=== PATIENT | female | born 1955 | race Caucasian/White ===

== ENCOUNTER 2017-12-24 16:54 | Emergency (ER) | payer MEDICARE, BC ==
[2017-12-24 17:25] VITALS: BP 115/78
--- NOTE | 2017-12-26 22:55 | UC ---
Nikole Hassan Gabriel, scribed for Joy Dozier MD on 12/24/17 at 1820 . Complaint Female HPI - HPI Summary HPI Summary: This patient is a 62 year old F presenting to [facility] with a chief complaint of a possible UTI that began yesterday. The patient rates the pain 2/10 in severity. Patient reports cloudy urine, foul smelling urine, dysuria, and bladder pressure. Patient denies visible hematuria, n/v/d, and back pain. Pt states her bladder doesnt fully empty due to MS. - History Of Current Complaint Chief Complaint: UCGU Stated Complaint: UTI Hx Obtained From: Patient Onset/Duration: Still Present Timing: Constant Severity Initially: Mild Severity Currently: Mild Pain Intensity: 2 Pain Scale Used: 0-10 Numeric Associated Signs And Symptoms: Negative: Back Pain, Nausea, Vomiting(# Of Episodes =) - Allergies/Home Medications Allergies/Adverse Reactions: Allergies Allergy/AdvReac Type Severity Reaction Status Date / Time ciprofloxacin Allergy Severe Hives Verified 12/24/17 17:25 Home Medications: Home Medications ALPRAZolam TAB* [Xanax TAB*] 1 mg PO DAILY 12/24/17 [History Confirmed 12/24/17] Aspirin 81 mg CHEW TAB* 12/24/17 [History Confirmed 12/24/17] Baclofen TAB* [Lioresal TAB*] 10 mg PO DAILY 12/24/17 [History Confirmed ] Cholecalciferol CAP/TAB(NF) [Vitamin D3 CAP/TAB (NF)] 12/24/17 [History] Cq 10 12/24/17 [History] L.acidoph,Paracasei, B.lactis [Probiotic] 12/24/17 [History Confirmed 12/24/17] Omeprazole CAP* [Prilosec CAP* 20 MG] 20 mg PO DAILY 12/24/17 [History Confirmed 12/24/17] Venlafaxine CAP (NF) [Effexor CAP (NF)] 225 mg PO DAILY 12/24/17 [History Confirmed 12/24/17] PMH/Surg Hx/FS Hx/Imm Hx Previously Healthy: No - see below. hx uti's as well. GI/ History: Gastroesophageal Reflux, Other Other GI/ History: UTI's Neurological History: Other Other Neurological History: MS - Surgical History Surgical History: Yes Surgery Procedure, Year, and Place: Removed 3 lymph nodes from neck in 1989 - Family History Known Family History: Negative: Hypertension, Renal Disease, Respiratory Disease, Seizure Disorder - Social History Alcohol Use: None Substance Use Type: None Smoking Status (MU): Never Smoked Tobacco Review of Systems Constitutional: Fatigue Skin: Negative Eyes: Negative ENT: Negative Respiratory: Negative Cardiovascular: Negative Genitourinary: Dysuria, Other - foul smelling urine, pressure over bladder, and cloudy urine Musculoskeletal: Negative - back pain All Other Systems Reviewed And Are Negative: Yes Physical Exam Triage Information Reviewed: Yes Appearance: Well-Appearing, Well-Nourished Vital Signs: Initial Vital Signs Temp 97.7 F 12/24/17 17:16 Pulse 98 12/24/17 17:16 Resp 20 12/24/17 17:16 BP 115/78 12/24/17 17:16 Pulse Ox 97 12/24/17 17:16 Vital Signs Reviewed: Yes Eye Exam: Normal ENT Exam: Normal Neck exam: Normal - grossly no c/o Respiratory Exam: Normal - no tachypnea, no dyspnea Cardiovascular Exam: Normal - hr regular, non-diaphoretic Abdominal Exam: Normal - no cvat abd nontender, although some discomfort lower abd (pelvis) Musculoskeletal Exam: Normal - no new c/o's reported. Moves x 4 ext's Neurological Exam: Other - grossly NAD. + hx ms. Detailed neurologic exam not performed. Psychological Exam: Normal - conversing easily and appropriately Skin Exam: Normal - no visible or reported rash Complaint Female Dx - Course Course Of Treatment: Reviewed urine dip. Suspicious UTI. Recommend f/u PCP or urology. Reviewed coa / tx plan. Questions as posed answered to the best of my ability. - Differential Dx/Diagnosis Provider Diagnoses: UTI Discharge - Sign-Out/Discharge Documenting (check all that apply): Discharge/Admit/Transfer - Discharge Plan Condition: Stable Disposition: HOME Prescriptions: Amoxicillin/Clavulanate TAB* [Augmentin TAB 875*] 875 mg PO BID #14 tab Phenazopyridine 200 mg (NF) [Pyridium 200 MG tab *] 200 mg PO TID #12 tab Patient Education Materials: Urinary Tract Infection in Women (DC), Hematuria ( ED) Referrals: Celia Moran NP [Primary Care Provider] - Additional Instructions: Follow up with Jamilah Moran NP, per routine. Follow up with Dr. Cota as scheduled in December. Seek medical attention for worse or new problems in the meantime. Urine culture has been sent to the lab. - Billing Disposition and Condition Condition: STABLE Disposition: HOME The documentation as recorded by the Nikole sorensen Gabriel accurately reflects the service I personally performed and the decisions made by me, Joy Dozier MD.
== END 2017-12-24 18:35 | disposition home or self-care (01) ==
LOC: UCEAST 16:54
DX: N39.0 Urinary tract infection, site not specified (principal); B96.89 Other specified bacterial agents as the cause of diseases classified elsewhere; Z87.440 Personal history of urinary (tract) infections; R53.83 Other fatigue; K21.9 Gastro-esophageal reflux disease without esophagitis; G35 Multiple sclerosis; Z88.1 Allergy status to other antibiotic agents
CPT/HCPCS: 81003; 87077; 87086; 87186; 99212; G0463

== ENCOUNTER 2018-03-22 20:07 | Inpatient (IN) | payer MEDICARE, BC ==
[2018-03-22] MEDS ORDERED: Acetaminophen TAB* 325 MG ONE (20:16)
[2018-03-22] MEDS ORDERED: Acetaminophen TAB* 325 MG PO ONE (20:21)
--- OUTSIDE RECORDS SUMMARY | 2018-03-22 21:20 | XMS REPORT ---
:1955 External Reference #:[id number] Author Organization [facility] Address [address] [place] [address] Phone [phone] Care Team Providers Name Role Phone Celia Moran DESIGN ANALYST Primary Care Physician Unavailable Payers Type Date Identification Numbers Payment Provider Subscriber Medicare Primary Policy Number: [id number] Medicare - [facility] Breana Hernadez PayID: [id number] [address] [facility] [place] [address] [place] [address] Policy Number: [id number] [facility] Chad Hernadez PayID: [id number] [address] [address] [place] [address] Problems Date Description Provider Status Onset: Generalized multiple sclerosis Active Onset: Rosacea Active Onset: 03/01/2018 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 once a day Prednisolone 03/10/ Active Suspension 1% 15ml 1 drops B00.52 Joaquin Acetate 2018 right eye Zablocki, Three M.D. times a day. taper as directed Venlafaxine 00// Active Tablets 100mg Unknown HCL 0000 Baclofen // Active Tablets 10mg Unknown 0000 Omeprazole / Active Capsules DR 20mg Unknown 0000 Alprazolam XR 00/ Active Tablets ER 1mg Unknown 0000 24HR Xanax XR 00/ Active Tablets ER 1mg Unknown 0000 24HR Vitamin D / Active Tablet Unknown (Cholecalcifer 0000 ol) Fish Oil / Active Capsules 1200mg 2 tabs po Unknown 0000 daily Coq10 / Active Capsules 300mg 1 tab po Unknown 0000 daily Aspirin Adult 00/ Active Tablets DR 81mg 1 tab po Unknown Low Strength 0000 daiy Multiple / Active Tablets Unknown Vitamins 0000 Probiotic / Active Tablets 1 tab po Unknown 0000 daily Results Description No Information Procedures Date CPT Code Description Status 03/10/2018 82478 Photography Ocular External Completed 03/10/2018 51996 Est Patient Intermediate Exam Completed 03/01/2018 44646 New Patient Comprehensive Exam Completed Plan of Care 03/16/2018 - Joaquin Walter M.D.H17.11 Central corneal opacity, right eyeComments:Smoking can increase the risk of developing or worsening any eye related disease, as well as affect your overall health. If you are a smoker, we strongly recommend that you quit.If you are not a smoker, we strongly recommend that you do not start. CONTINUE TO TAKE THE VALTREX PILL ONCE A DAYDECREASETHE STEROID DROP TO 3X/DAY TO THE RIGHT EYE UNTIL I SEE YOU IN 3 WEEKSFollow up:3 Week Follow Up CORNEA CHECK At your next visit, we are not planning to dilate your eyes. However,if you have any changes in your vision or new symptoms, there are certain situations that require usto dilate your eyes. If Dr. Walter requests any additional testing, that may require extra time. If you have any questions before your next appointment, please call our office at .
--- OUTSIDE RECORDS SUMMARY | 2018-03-22 21:20 | XMS REPORT ---
:1955 External Reference #:[id number] Author Organization [facility] Address [address] [place] [address] Phone [phone] Care Team Providers Name Role Phone Celia Moran TWISTHAND Primary Care Physician Unavailable Payers Type Date Identification Numbers Payment Provider Subscriber Medicare Primary Policy Number: [id number] Medicare - [facility] Breana Hernadez PayID: [id number] [address] [facility] [place] [address] [place] [address] Policy Number: [id number] [facility] Chad Hernadez PayID: [id number] [address] [address] [place] [address] Problems Date Description Provider Status Onset: Generalized multiple sclerosis Active Onset: Rosacea 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 Once a day Prednisolone 03/10/ Active Suspension 1% 15ml 1 drops B00.52 Joaquin Acetate 2018 right eye Zablocki, Six times M.D. a day. taper as directed Venlafaxine 00// Active Tablets 100mg Unknown HCL 0000 Baclofen /00/ Active Tablets 10mg Unknown 0000 Omeprazole / Active Capsules DR 20mg Unknown 0000 Alprazolam XR 00/ Active Tablets ER 1mg Unknown 0000 24HR Xanax XR 00/ Active Tablets ER 1mg Unknown 0000 24HR Vitamin D / Active Tablet Unknown (Cholecalcifer 0000 ol) Fish Oil / Active Capsules 1200mg 2 tabs po Unknown 0000 daily Coq10 // Active Capsules 300mg 1 tab po Unknown 0000 daily Aspirin Adult / Active Tablets DR 81mg 1 tab po Unknown Low Strength 0000 daiy Multiple / Active Tablets Unknown Vitamins 0000 Probiotic / Active Tablets 1 tab po Unknown 0000 daily Results Description No Information Procedures Date CPT Code Description Status 03/01/2018 96664 New Patient Comprehensive Exam Completed Plan of Care 03/10/2018 - Joaquin Walter M.D.B00.52 Herpesviral keratitisNew Medication: Valacyclovir HCL 500 mgPrednisolone Acetate 1 %Comments:Smoking can increase the risk of developing or worsening any eye related disease, as well as affect your overall health. If you are a smoker, we strongly recommend that you quit.If you are not a smoker, we strongly recommend that you do not start. I WILL PRESCRIBE AN ORAL ANTIVIRAL, START ~B_TWO DAYS BEFORE~b_ THE STEROID EYE DROPS. TAKE THE ORAL MEDICATION 1 PILL ONCE A DAY. USE THE STEROID EYE DROPS 6 TIMES A DAY FOR 1 WEEK TO THE RIGHT UNTIL I SEE YOU AGAIN CONTINUE TAKING THE ORAL MEDICATION WHILE USING THE EYE DROPS.Follow up:1 Week Follow Up CORNEA RECHECK At your next visit, we are not planning to dilate your eyes. However, if you have any changes in your vision or new symptoms, there are certain situations that require us to dilate your eyes. If Dr. Walter requests any additional testing, that may require extra time.If you have any questions before your next appointment, please call our office at .
[2018-03-22] MEDS ORDERED: Ibuprofen TAB* 400 MG PO ONE (22:06)
[2018-03-22] MEDS ORDERED: Ibuprofen TAB* 800 MG PO ONE ×2 (22:08→22:10)
[2018-03-22] MEDS ORDERED: NS 0.9% 1000 ML*IV.FLUID IV ONE (22:17)
[2018-03-22] MEDS ORDERED: Piperacillin/Tazobac ADVAN(*) 3.375 GM in NS 0.9% 100 ML* 100 ML IVPB ONE (22:18)
[2018-03-22 22:48] LABS: Hematocrit 39 % (35-47); Hemoglobin 13.7 g/dl (12.0-16.0); Mean Corpuscular HGB Conc 36 g/dl (31-36); Mean Corpuscular Hemoglobin 32 pg (27-31); Mean Corpuscular Volume 91 fL (80-97); Mean Platelet Volume 6.2 um3 (7.4-10.4); Platelet Count 257 10^3/ul (150-450); Red Blood Count 4.26 10^6/ul (4.00-5.40); Red Cell Distribution Width 13 % (10.5-15); White Blood Count 12.4 10^3/ul (3.5-10.8)
--- NOTE | 2018-03-22 22:56 | ED ---
Complex/Multi-Sys Presentation - HPI Summary HPI Summary: This is Chas Todd documenting for Germain Mathew MD. This patient is a 63 year old F presenting to [facility] with a chief complaint of fever. She also reports a GO, lower back pain, diffuse soreness, urinary retention secondary to MS, and difficulty ambulating secondary to MS. She denies vomiting, flank pain/abdominal pain, burning sensation during urination, or diarrhea. The patient rates the pain 7/10 in severity. She has had MS for over 40 years. Patient is able to urinate on her own and does not have a catheter. She sees Dr. Orlando Hughes in Urology. - History Of Current Complaint Chief Complaint: EDFever Time Seen by Provider: 03/22/18 22:06 Hx Obtained From: Patient Onset/Duration: Still Present Timing: Constant Severity Currently: Moderate Severity Initially: Moderate Associated Signs And Symptoms: Positive: Headache, Back Pain - lower back pain, Fever, Other - diffuse soreness, urinary retention secondary to MS, and difficulty ambulating secondary to MS; denies flank pain. Negative: Vomiting, Abdominal Pain - Denies flank pain/abdominal pain, Dysuria - Denies burning during urination - Allergies/Home Medications Allergies/Adverse Reactions: Allergies Allergy/AdvReac Type Severity Reaction Status Date / Time ciprofloxacin Allergy Severe Hives Verified 12/24/17 17:25 Home Medications: Home Medications ALPRAZolam [Alprazolam Xr] 1 mg PO DAILY 03/23/18 [History Confirmed 03/23/18] Calcium Carbonate [Calcium] 500 mg PO DAILY 03/23/18 [History Confirmed 03/23/18 ] Magnesium Oxide [Magnesium] 400 mg PO DAILY 03/23/18 [History Confirmed 03/23/18 ] Multivitamins/Minerals TAB* [Theragran/minerals TAB*] 1 tab PO DAILY 03/23/18 [ History Confirmed 03/23/18] [place]-3 Fatty Acids/Fish Oil [Fish Oil 1,000 mg Capsule] 1 each PO BID 03/23/18 [History Confirmed 03/23/18] ValACYclovir (*) [Valtrex 500 mg (*)] 500 mg PO DAILY 03/23/18 [History Confirmed 03/23/18] prednisoLONE 1% OPHTH.SUSP* [Pred Forte 1%*] 1 drop RIGHT EYE TID 03/23/18 [ History Confirmed 03/23/18] PMH/Surg Hx/FS Hx/Imm Hx Musculoskeletal History: Denies: Hx Osteoporosis - Cancer History Hx Chemotherapy: No Hx Radiation Therapy: No - Surgical History Surgery Procedure, Year, and Place: Removed 3 lymph nodes from neck in 1989 Infectious Disease History: No Infectious Disease History: Denies: Traveled Outside the [place] in Last 30 Days - Family History Known Family History: Negative: Hypertension, Renal Disease, Respiratory Disease, Seizure Disorder - Social History Alcohol Use: None Substance Use Type: Reports: None Smoking Status (MU): Never Smoked Tobacco Review of Systems Positive: Fever Negative: Vomiting, Diarrhea Positive: other - urinary retention secondaryto MS. Negative: burning Positive: Other - difficulty ambulating secondary to MS, lower back pain, and diffuse soreness; denies flank pain Positive: Headache All Other Systems Reviewed And Are Negative: Yes Physical Exam - Summary Physical Exam Summary: VITAL SIGNS: Reviewed. GENERAL: Patient is a well-developed and nourished FEMALE who is lying comfortable in the stretcher. Patient is not in any acute respiratory distress. HEAD AND FACE: No signs of trauma. No ecchymosis, hematomas or skull depressions. No sinus tenderness. EYES: PERRLA, EOMI x 2, No injected conjunctiva, no nystagmus. EARS: Hearing grossly intact. Ear canals and tympanic membranes are within normal limits. MOUTH: Oropharynx within normal limits. NECK: Supple, trachea is midline, no adenopathy, no JVD, no carotid bruit, no c- spine tenderness, neck with full ROM. CHEST: Symmetric, no tenderness at palpation LUNGS: Clear to auscultation bilaterally. No wheezing or crackles. CVS: Mild tachycardia. Regular rhythm, S1 and S2 present, no murmurs or gallops appreciated. ABDOMEN: Soft, non-tender. No signs of distention. No rebound no guarding, and no masses palpated. Bowel sounds are normal. EXTREMITIES: FROM in all major joints, no edema, no cyanosis or clubbing. NEURO: Alert and oriented x 3. No acute neurological deficits. Speech is normal and follows commands. SKIN: Dry and warm Triage Information Reviewed: Yes Vital Signs On Initial Exam: Initial Vitals Temp Pulse Resp BP Pulse Ox 101.9 F 122 22 131/78 99 03/22/18 20:10 03/22/18 20:10 03/22/18 20:10 03/22/18 20:10 03/22/18 20:10 Vital Signs Reviewed: Yes Diagnostics - Vital Signs Vital Signs Temp Pulse Resp BP Pulse Ox 03/22/18 22:12 101.3 F 03/22/18 20:10 101.9 F 122 22 131/78 99 - Laboratory Lab Results: Lab Results 03/22/18 Range/Units 22:36 WBC 12.4 H (3.5-10.8) 10^3/ul RBC 4.26 (4.00-5.40) 10^6/ul Hgb 13.7 (12.0-16.0) g/dl Hct 39 (35-47) % MCV 91 (80-97) fL MCH 32 H (27-31) pg MCHC 36 (31-36) g/dl RDW 13 (10.5-15) % Plt Count 257 (150-450) 10^3/ul MPV 6.2 L (7.4-10.4) um3 Neut % (Auto) Pending Lymph % (Auto) Pending [place] % (Auto) Pending Eos % (Auto) Pending Baso % (Auto) Pending Absolute Neuts (auto) Pending Absolute Lymphs (auto) Pending Absolute Monos (auto) Pending Absolute Eos (auto) Pending Absolute Basos (auto) Pending Absolute Nucleated RBC Pending Nucleated RBC % Pending Result Diagrams: 03/22/18 22:36 03/22/18 22:36 Lab Statement: Any lab studies that have been ordered have been reviewed, and results considered in the medical decision making process. - Radiology Chest X-ray Radiology Interpretation Completed By: ED Physician - No acute processes, pending official reading from the radiologist. - CT CT of Abdomen/Pelvis CT Interpretation Completed By: Radiologist - CT of abdomen reveal findings of chronic bladder outlet obstruction or neurogenic bladder. No addional findings to correlate with patient's symptomatology. The ED Physician has reviewed this report. - EKG 4712 EKG Interpretation: Non-specific ST/T wave changes changes 23:22 Cardiac Rate: NL - 89 BPM EKG Rhythm: Sinus Rhythm EKG Interpretation: EKG reveals non-specific ST/T wave changes. Read by physician at 23:22 Complex Multi-Symp Course/Dx Assessment/Plan: This patient is a 63 yo with hx MS that has been stable over many years. She also has difficulty emptying her bladder, fever, body aches, and chills. Bloodwork showed she has a UTI. She was admitted for a UTI. - Diagnoses Differential Diagnoses/HQI/PQRI: Urinary Tract Infection Provider Diagnoses: UTI (urinary tract infection) - Physician Notifications Discussed Care Of Patient With: Chris Puga Time Discussed With Above Provider: 23:24 Instructed by Provider To: Admit As Inpatient - Spoke on the phone with Dr. Puga, a hospitalist, who will come see the patient and admit her to [facility]. Discharge - Sign-Out/Discharge Documenting (check all that apply): Patient Departure - Discharge Plan Condition: Stable Disposition: ADMITTED TO [facility] [facility]
[2018-03-22 22:57] LABS: INR 0.94 (0.77-1.02)
[2018-03-22 23:11] LABS: ABS Basophils 0 10^3/ul (0-0.2); ABS Eosinophils 0 10^3/ul (0-0.6); ABS Lymphocytes 0.9 10^3/ul (1.0-4.8); ABS Monocytes 1.1 10^3/ul (0-0.8); ABS Neutrophils 10.4 10^3/ul (1.5-7.7); ABS Nucleated RBC 0 10^3/ul; Eosinophil % 0 % (0-6); Lymphocyte % 7.2 % (25-47); Nucleated Red Blood Cells % 0
[2018-03-22 23:12] LABS: EGFR Non-African American 65.3 (>60)
[2018-03-23 00:26] LABS: Urine Appearance Cloudy; Urine Blood 2+ (Negative); Urine Color Amber; Urine Ketones Negative (Negative); Urine Protein Negative (Negative); Urine Red Blood Cell 3+(>10/hpf) (Absent); Urine Specific Gravity 1.006 (1.010-1.030); Urine Urobilinogen Positive (Negative); Urine White Blood Cell 3+(>20/hpf) (Absent)
[2018-03-23] MEDS ORDERED: Ondansetron INJ* 2 MG/ML VIAL IV PRN (00:59)
[2018-03-23] MEDS ORDERED: NS 0.9% 1000 ML* 1,000 ML IV SCH (01:00)
[2018-03-23] MEDS: cefTRIAXone(*) 1 GM in NS 0.9% 50 ML* 50 ML IVPB SCH (03:23)
[2018-03-23] MEDS: Baclofen TAB* 10 MG PO SCH ×5 (03:24→20:50)
[2018-03-23] MEDS: prednisoLONE 1% OPHTH.SUSP* 5 ML OPHTH.SUSP RIGHT EYE SCH ×4 (03:25→20:50)
[2018-03-23] MEDS ORDERED: Morphine VIAL* 4 MG/ML VIAL (1 ml vial) IV ONE (04:34)
[2018-03-23] MEDS: Heparin VIAL(*) 5000 UNITS/ML VIAL (FIVE THOUSAND) SUBCUT SCH ×3 (04:49→20:50)
--- NOTE | 2018-03-23 05:28 | HP ---
CC: Celia Moran NP * HISTORY AND PHYSICAL: DATE OF ADMISSION: 03/23/18 PRIMARY CARE PROVIDER: Celia Moran NP ATTENDING PHYSICIAN WHILE IN THE HOSPITAL: Dr. Chris Puga * (report dictated by Eduardo Flores NP) CHIEF COMPLAINT: 1. Not feeling well. 2. Arthralgias. 3. Myalgia. HISTORY OF PRESENT ILLNESS: Ms. Hernadez is a 63-year-old female patient. She carries a history of MS, rosacea, anxiety, neurogenic bladder, and history of hypertension. She is coming into the ED today stating that over the last couple of days, she just has not been feeling well. She has been having aching , particularly in the lower extremities. She has that kind of aching all over. She has just been feeling weak. She has been having a hard time walking, which is not her baseline. She states typically, she can get around. She states she has just been feeling more weak, more fatigued. So, she decided to come into the ED today. When she arrived, she was noted to be febrile. She is denying any nausea, vomiting. No flank pain. She did admit to having foul- smelling urine, cloudy urine. She did start taking Pyridium because she was having a harder time emptying her bladder. She came into the emergency department, she was evaluated, was found to have showing signs of sepsis from a urinary source and we were asked to evaluate for admission. PAST MEDICAL HISTORY: Significant for: 1. MS. 2. Rosacea. 3. Anxiety. 4. Neurogenic bladder. 5. Hypertension. PAST SURGICAL HISTORY: She has had tonsillectomy. HOME MEDICATIONS: Include: 1. Prednisolone 1 drop right eye t.i.d. 2. Valtrex 500 mg daily. 3. Fish oil 1 capsule p.o. b.i.d. 4. Calcium 500 mg daily. 5. Multivitamin 1 tablet daily. 6. Magnesium oxide 400 mg p.o. daily. 7. Xanax XR 1 mg p.o. daily. 8. Coenzyme Q10 1 tablet p.o. daily. 9. Vitamin D3 2000 units p.o. daily. 10. Aspirin 81 mg daily. 11. Prilosec 20 mg daily. 12. Probiotic 1 capsule p.o. daily. 13. Effexor 225 mg p.o. daily. 14. Baclofen 10 mg p.o. 4 times a day. ALLERGIES TO MEDICATIONS: Include CIPROFLOXACIN. FAMILY HISTORY: Mother had a history of intracranial hemorrhage. Father had a history of heart disease. SOCIAL HISTORY: She does not smoke. She does not drink. Surrogate decision maker is her . REVIEW OF SYSTEMS: There is a documented fever here, but she denied having any fevers at home. She denies having any double vision. She denies having any ear discharge. There is no rhinorrhea. There was no sore throat, no thyroid enlargement. She is denying having any chest pain. There was no orthopnea, there was no nocturnal dyspnea. There was no abdominal pain, no flank tenderness. She denies having any dysuria. There has been no frequency. She denied having any seizure. There was no loss of consciousness. No pruritus. No skin ulcerations. Review of 14 systems completed, all others negative. PHYSICAL EXAMINATION GENERAL: At this time, Ms. Hernadez is a 63-year-old female patient. She is sitting in the ED stretcher. She does not appear to be in any acute distress. VITAL SIGNS: Blood pressure 137/77, pulse 95, respirations were 18, O2 sat 94% , temperature 98.9, her original temperature was 101.9. HEENT: Head is atraumatic, normocephalic. Eyes: EOMs are intact. Sclerae anicteric and not pale. Throat: Oral mucosa appears to be dry. No oropharyngeal erythema. NECK: Supple. LUNGS: Clear to auscultation bilaterally. There were no wheezes, rales, or rhonchi. HEART: Sounds S1, S2. She had a regular rate and rhythm. There were no murmurs, rubs or gallops. ABDOMEN: Soft, flat, nontender. She had no CVA tenderness. EXTREMITIES: Pulses were 2+ throughout. She has about 4/5 strength in the lower extremities. She had 5/5 strength in the upper extremities. She had no peripheral edema. Pulses are 2+. NEUROLOGIC: The patient is awake, she is alert. She is oriented x3. The tongue is midline. She had no gross focal deficits. SKIN: Intact. DIAGNOSTIC STUDIES/LAB DATA: WBC of 12.4, RBC of 4.26, hemoglobin of 13.7, hematocrit of 39, platelet count of 257. INR was 0.94, PTT of 24.8. Sodium was 135, potassium of 3.7, chloride of 101, bicarb 25, BUN 12, creatinine of 0.87, glucose 130, lactic 0.5, calcium 9.5. Total bili is 0.6, AST 19, ALT 19, alk phos 79, troponin 0.02. Albumin was 4.2. She did have an abdomen and pelvis CT obtained today. Impression was findings of chronic bladder outlet obstruction or neurogenic bladder. No additional findings to correlate with patient's symptomatology. She did have an EKG obtained today. Unfortunately, I do not have a previous for comparison, but it does show today a normal sinus rhythm. She had diffuse ST depression, rate of 89, but no ST elevations or T-wave inversions. Old medical records are reviewed. ASSESSMENT AND PLAN: Ms. Hernadez is a 63-year-old female patient coming into the emergency department today with complaints of generalized malaise, aches, not feeling well, and found to have fever, found to be initially tachycardic and she also was noted to be mildly tachypneic with respiratory rate of 22. We were asked to evaluate for admission. She will be admitted under inpatient status for: 1. Sepsis secondary to urinary tract infection. At this point, I will go ahead and she did get 30 mg/kg fluid bolus. She has been pancultured. Urine has been sent previously. She is growing out E. coli. I have placed her on Rocephin and I will continue with fluid hydration, wait for cultures, and continue to monitor. I suspect the source is urinary. 2. EKG changes, probably secondary to some demand ischemia from the sepsis. I am going to go ahead and place her on telemetry, cycle her troponins. We will get a repeat EKG in the morning. 3. Multiple sclerosis. Continue her current medical regimen. 4. Rosacea. Not an active issue currently. 5. Anxiety. Continue meds as prescribed. 6. Neurogenic bladder. I am going to go ahead and put a Andersen in the setting of the urinary tract infection. She will need to follow up with her primary urologist, Dr. Hughes. We can touch base with him tomorrow. She may be at a point where she will need to learn how to self cath, but again I would defer further management to her urologist. 7. Hypertension. Continue meds as prescribed. 8. DVT prophylaxis. She will be placed on heparin subcu. 9. Code status. She is full code. 10. Fluids, electrolytes, and nutrition. She can have a regular diet. TIME SPENT: Time spent on the admission was approximately 60 minutes, greater than half the time was spent [id number] with the patient obtaining my history and physical, other half time was spent going over the plan of care with the patient and implementing the plan of care. I did discuss the plan of care with my attending, Dr. Puga, he is in agreement. EDUARDO FLORES, WORD PROCESSING SPECIALIST [id number]/[facility] #: [id number] JOHANN
--- NOTE | 2018-03-23 07:51 | RAD ---
HISTORY: Fever COMPARISONS: None VIEWS: 1: frontal portable view of the chest at 10:27 PM FINDINGS: LINES AND TUBES: None. CARDIOMEDIASTINAL SILHOUETTE: The cardiomediastinal silhouette is normal for portable technique. PLEURA: The costophrenic angles are sharp. No pleural abnormalities are noted. LUNG PARENCHYMA: The lungs are clear. ABDOMEN: The upper abdomen is clear. There is no subphrenic gas. BONES AND SOFT TISSUES: There is a scoliotic curvature of the spine IMPRESSION: NO ACTIVE CARDIOPULMONARY DISEASE. R0
[2018-03-23 08:58] LABS: ABS Basophils 0 10^3/ul (0-0.2); ABS Eosinophils 0 10^3/ul (0-0.6); ABS Lymphocytes 0.6 10^3/ul (1.0-4.8); ABS Monocytes 1.1 10^3/ul (0-0.8); ABS Neutrophils 10.7 10^3/ul (1.5-7.7); ABS Nucleated RBC 0 10^3/ul; Eosinophil % 0 % (0-6); Hematocrit 36 % (35-47); Hemoglobin 12.6 g/dl (12.0-16.0); Lymphocyte % 4.9 % (25-47); Mean Corpuscular HGB Conc 35 g/dl (31-36); Mean Corpuscular Hemoglobin 32 pg (27-31); Mean Corpuscular Volume 92 fL (80-97); Mean Platelet Volume 6.3 um3 (7.4-10.4); Nucleated Red Blood Cells % 0; Platelet Count 214 10^3/ul (150-450); Red Blood Count 3.91 10^6/ul (4.00-5.40); Red Cell Distribution Width 13 % (10.5-15); White Blood Count 12.5 10^3/ul (3.5-10.8)
--- NOTE | 2018-03-23 08:58 | RAD ---
CLINICAL HISTORY: fever ? source, HX MS COMPARISON: None TECHNIQUE: Multiple contiguous axial CT scans were obtained of the abdomen and pelvis, without intravenous contrast enhancement. Coronal and sagittal multiplanar reformations are submitted for review. Oral contrast was not administered. FINDINGS: The study is limited by the lack of intravenous contrast. This limits evaluation of the solid organs and vasculature. LUNG BASES: The lung bases are clear. LIVER: The liver is normal in shape, size, contour, and attenuation. BILE DUCTS: There is no intrahepatic or extrahepatic biliary dilatation. GALLBLADDER: The gallbladder is normal, without pericholecystic inflammatory change. PANCREAS: The pancreas is normal, without mass or ductal dilatation. SPLEEN: Normal in size and appearance. UPPER GI TRACT: Evaluation of the gastrointestinal tract is limited by incomplete gastric distention. The upper GI tract is unremarkable. SMALL BOWEL AND MESENTERY: The small bowel is normal in contour, course, and caliber. There is no obstruction or dilatation. COLON: The colon is normal in contour, course, caliber. There is no pericolonic inflammatory change. ADRENALS: Normal bilaterally. KIDNEYS: The kidneys are normal in shape, size, contour, and axis. There is no hydronephrosis or nephrolithiasis. BLADDER: The bladder is distended. There is trabeculation of the bladder wall with multiple small bladder diverticula. PELVIC ORGANS: The uterus and adnexa are grossly normal for technique. AORTA: The aorta is normal. IVC: Unremarkable LYMPH NODES: There is no lymphadenopathy by size criteria. ABDOMINAL WALL: There is no evidence for abdominal wall hernia. BONES AND SOFT TISSUES: There is spondylolysis with spondylolisthesis at L5-S1. Degenerative changes are noted along the lower lumbar spine. OTHER: None IMPRESSION: 1. MULTIPLE BLADDER DIVERTICULA SUGGESTIVE OF CHRONIC BLADDER OUTLET OBSTRUCTION VERSUS NEUROGENIC BLADDER. 2. SPONDYLOLYSIS WITH SPONDYLOLISTHESIS AT L5-S1. R2
[2018-03-23 09:21] LABS: EGFR Non-African American 78.8 (>60)
[2018-03-23] MEDS: Multivitamins/Minerals TAB PO SCH (09:26)
[2018-03-23] MEDS: Lactobacillus Acidophilus* 1 TAB PO SCH (09:26)
[2018-03-23] MEDS: ALPRAZolam TAB* 0.5 MG PO SCH (09:26)
[2018-03-23] MEDS: Omeprazole CAP* 20 MG PO SCH (09:26)
[2018-03-23] MEDS: Venlafaxine EXT RELEASE CAP* 75 MG PO SCH (09:27)
[2018-03-23] MEDS: ValACYclovir (*) 500 MG TAB PO SCH (09:27)
[2018-03-23] MEDS: Aspirin 81 mg CHEW TAB* 81 MG TAB.CHEW PO SCH (09:30)
--- NOTE | 2018-03-23 10:26 | PN ---
Subjective Date of Service: 03/23/18 Interval History: Leg pain gone. Patient had been aware of bladder fullness for some time. She has been seeing Dr. Cota who talked to her about self-cath. Objective Active Medications: Acetaminophen (Tylenol Tab*) 650 mg PO Q4H PRN PRN Reason: FEVER/PAIN Alprazolam (Xanax Tab*) 1 mg PO DAILY [facility] Last Admin: 03/23/18 09:26 Dose: 1 mg Aspirin (Aspirin 81 Mg Chew Tab*) 81 mg PO DAILY [facility] Last Admin: 03/23/18 09:30 Dose: 81 mg Baclofen (Lioresal Tab*) 10 mg PO QID [facility] Last Admin: 03/23/18 09:26 Dose: 10 mg Heparin Sodium (Porcine) (Heparin Vial(*)) 5,000 units SUBCUT Q8HR [facility] Last Admin: 03/23/18 04:49 Dose: 5,000 units Ceftriaxone Sodium 1 gm/ (Sodium Chloride) 50 mls @ 200 mls/hr IVPB Q24H [facility] Last Admin: 03/23/18 03:23 Dose: 200 mls/hr Lactobacillus Rhamnosus (Lactobacillus Acidophilus*) 1 tab PO DAILY [facility] Last Admin: 03/23/18 09:26 Dose: 1 tab Multivitamins/Minerals (Theragran/Minerals Tab*) 1 tab PO DAILY [facility] Last Admin: 03/23/18 09:26 Dose: 1 tab Omeprazole (Prilosec Cap*) 20 mg PO DAILY@0730 [facility] Last Admin: 03/23/18 09:26 Dose: 20 mg Ondansetron HCl (Zofran Inj*) 4 mg IV Q6H PRN PRN Reason: NAUSEA Prednisolone Acetate (Pred Forte 1%*) 1 drop RIGHT EYE TID [facility] Last Admin: 03/23/18 09:27 Dose: 1 drop Valacyclovir HCl (Valtrex 500 Mg (*)) 500 mg PO DAILY [facility]; Protocol Last Admin: 03/23/18 09:27 Dose: 500 mg Venlafaxine HCl (Effexor Xr Cap*) 225 mg PO DAILY [facility]; Protocol Last Admin: 03/23/18 09:27 Dose: 225 mg Vital Signs - 8 hr 03/23/18 03/23/18 03/23/18 03:33 03:41 04:49 Temperature 97.3 F 98.2 F Pulse Rate 81 88 Respiratory 18 17 20 Rate Blood Pressure 131/66 119/67 (mmHg) O2 Sat by Pulse 98 99 Oximetry 03/23/18 09:26 Temperature Pulse Rate Respiratory 18 Rate Blood Pressure (mmHg) O2 Sat by Pulse Oximetry Oxygen Devices in Use Now: None Appearance: Alert, partly up in bed. In good spirits. Looks comfortable. Eyes: No Scleral Icterus Respiratory: Symmetrical Chest Expansion and Respiratory Effort, Clear to Auscultation, Clear to Percussion Cardiovascular: NL Sounds; No Murmurs; No JVD, RRR, No Edema, - Skin: No Rash or Ulcers, No Nodules or Sclerosis, - Neurological: Alert and Oriented x 3, NL Sensation Result Diagrams: 03/23/18 08:30 03/23/18 08:30 Additional Lab and Data: Lab Results 03/22/18 Range/Units 22:36 WBC 12.4 H (3.5-10.8) 10^3/ul RBC 4.26 (4.00-5.40) 10^6/ul Hgb 13.7 (12.0-16.0) g/dl Hct 39 (35-47) % MCV 91 (80-97) fL MCH 32 H (27-31) pg MCHC 36 (31-36) g/dl RDW 13 (10.5-15) % Plt Count 257 (150-450) 10^3/ul MPV 6.2 L (7.4-10.4) um3 Neut % (Auto) Pending Lymph % (Auto) Pending Overton % (Auto) Pending Eos % (Auto) Pending Baso % (Auto) Pending Absolute Neuts (auto) Pending Absolute Lymphs (auto) Pending Absolute Monos (auto) Pending Absolute Eos (auto) Pending Absolute Basos (auto) Pending Absolute Nucleated RBC Pending Nucleated RBC % Pending Assess/Plan/Problems-Billing Assessment: - Patient Problems (1) UTI (urinary tract infection) Current Visit: Yes Status: Acute Comment: U Cx pending. Continue ceftrriaxone. Note last C&S showed E. coli coyle-sensitive. Consider discharge on oral cephalosporin 03/[address] Cota for teaching self-cath. (2) Urinary retention Current Visit: Yes Status: Acute Code(s): R33.9 - RETENTION OF URINE, UNSPECIFIED SNOMED Code(s): 619808990 Comment: In ED Andersen drained 1300 ml immediately. See above. (3) Multiple sclerosis Current Visit: Yes Status: Acute Code(s): G35 - MULTIPLE SCLEROSIS SNOMED Code(s): 75421134 Comment: Fup Dr. Jimenez.
[2018-03-23] MEDS: Acetaminophen TAB* 325 MG PO PRN (18:18)
[2018-03-24] MEDS: Acetaminophen TAB* 325 MG PO PRN (01:01)
[2018-03-24] MEDS: cefTRIAXone(*) 1 GM in NS 0.9% 50 ML* 50 ML IVPB SCH (02:07)
[2018-03-24] MEDS: Heparin VIAL(*) 5000 UNITS/ML VIAL (FIVE THOUSAND) SUBCUT SCH ×3 (05:23→20:01)
[2018-03-24 07:23] LABS: ABS Basophils 0 10^3/ul (0-0.2); ABS Eosinophils 0 10^3/ul (0-0.6); ABS Lymphocytes 1.8 10^3/ul (1.0-4.8); ABS Monocytes 0.9 10^3/ul (0-0.8); ABS Neutrophils 6.4 10^3/ul (1.5-7.7); ABS Nucleated RBC 0 10^3/ul; Eosinophil % 0 % (0-6); Hematocrit 37 % (35-47); Hemoglobin 12.9 g/dl (12.0-16.0); Lymphocyte % 19.6 % (25-47); Mean Corpuscular HGB Conc 34 g/dl (31-36); Mean Corpuscular Hemoglobin 32 pg (27-31); Mean Corpuscular Volume 93 fL (80-97); Mean Platelet Volume 6.3 um3 (7.4-10.4); Nucleated Red Blood Cells % 0; Platelet Count 197 10^3/ul (150-450); Red Blood Count 4.03 10^6/ul (4.00-5.40); Red Cell Distribution Width 13 % (10.5-15); White Blood Count 9.2 10^3/ul (3.5-10.8)
[2018-03-24 07:33] LABS: INR 0.98 (0.77-1.02)
[2018-03-24] MEDS: Omeprazole CAP* 20 MG PO SCH (07:34)
[2018-03-24 07:37] LABS: EGFR Non-African American 77.6 (>60)
[2018-03-24] MEDS: Multivitamins/Minerals TAB PO SCH (09:20)
[2018-03-24] MEDS: ValACYclovir (*) 500 MG TAB PO SCH (09:20)
[2018-03-24] MEDS: Aspirin 81 mg CHEW TAB* 81 MG TAB.CHEW PO SCH (09:20)
[2018-03-24] MEDS: ALPRAZolam TAB* 0.5 MG PO SCH (09:20)
[2018-03-24] MEDS: Baclofen TAB* 10 MG PO SCH ×4 (09:21→20:01)
[2018-03-24] MEDS: Lactobacillus Acidophilus* 1 TAB PO SCH (09:21)
[2018-03-24] MEDS: prednisoLONE 1% OPHTH.SUSP* 5 ML OPHTH.SUSP RIGHT EYE SCH ×3 (09:21→20:01)
[2018-03-24] MEDS: Venlafaxine EXT RELEASE CAP* 75 MG PO SCH (09:24)
[2018-03-24] MEDS ORDERED: Calcium CHLORIDE 10% SYRINGE* 1 GM in D5W 100 ML BAG* 100 ML IV ONE (10:30)
--- NOTE | 2018-03-24 16:32 | PN ---
Subjective Date of Service: 03/24/18 Interval History: Pt seen and examined. Meds and labs reviewed ROS: Pt mentions, she still feels weak more than usual. Denied GO/dizziness, F /C, N/V, CP, SOB, increased cough, sputum production, abd pain, diarrhea, constipation, dysuria, myalgias, arthralgias, throat pain, and new skin lesions. The rest of the 14 point ROS are unremarkable. PHYSICAL EXAM: GEN APPEARANCE: Awake, not in acute distress HEENT: NC/AT, PERRLA, moist oral mucosa, (-) throat erythema NECK: Soft, supple, (-) cervical LAD, (-)JVD HEART: S1S2 WNL, RRR, No MRG CHEST: CTA, BL, GAE, No W/R/R ABD: Soft, ND/NT, NABS 4x Q EXT: No C/C/E SKIN: Warm to touch PSYCH: No active psychosis, hallucinations, depression, SI/HI Objective Active Medications: Acetaminophen (Tylenol Tab*) 650 mg PO Q4H PRN PRN Reason: FEVER/PAIN Last Admin: 03/24/18 01:01 Dose: 650 mg Alprazolam (Xanax Tab*) 1 mg PO DAILY [facility] Last Admin: 03/24/18 09:20 Dose: 1 mg Aspirin (Aspirin 81 Mg Chew Tab*) 81 mg PO DAILY [facility] Last Admin: 03/24/18 09:20 Dose: 81 mg Baclofen (Lioresal Tab*) 10 mg PO QID [facility] Last Admin: 03/24/18 16:25 Dose: 10 mg Heparin Sodium (Porcine) (Heparin Vial(*)) 5,000 units SUBCUT Q8HR [facility] Last Admin: 03/24/18 13:02 Dose: 5,000 units Ceftriaxone Sodium 1 gm/ (Sodium Chloride) 50 mls @ 200 mls/hr IVPB Q24H [facility] Last Admin: 03/24/18 02:07 Dose: 200 mls/hr Lactobacillus Rhamnosus (Lactobacillus Acidophilus*) 1 tab PO DAILY [facility] Last Admin: 03/24/18 09:21 Dose: 1 tab Multivitamins/Minerals (Theragran/Minerals Tab*) 1 tab PO DAILY [facility] Last Admin: 03/24/18 09:20 Dose: 1 tab Omeprazole (Prilosec Cap*) 20 mg PO DAILY@0730 [facility] Last Admin: 03/24/18 07:34 Dose: 20 mg Ondansetron HCl (Zofran Inj*) 4 mg IV Q6H PRN PRN Reason: NAUSEA Prednisolone Acetate (Pred Forte 1%*) 1 drop RIGHT EYE TID [facility] Last Admin: 03/24/18 16:25 Dose: 1 drop Valacyclovir HCl (Valtrex 500 Mg (*)) 500 mg PO DAILY [facility]; Protocol Last Admin: 03/24/18 09:20 Dose: 500 mg Venlafaxine HCl (Effexor Xr Cap*) 225 mg PO DAILY [facility]; Protocol Last Admin: 03/24/18 09:24 Dose: 225 mg Vital Signs - 8 hr 03/24/18 03/24/18 03/24/18 08:51 09:20 11:22 Temperature 98.4 F Pulse Rate 86 Respiratory 16 16 18 Rate Blood Pressure 141/79 (mmHg) O2 Sat by Pulse 100 Oximetry 03/24/18 11:32 Temperature 98.6 F Pulse Rate 93 Respiratory 16 Rate Blood Pressure 141/76 (mmHg) O2 Sat by Pulse 100 Oximetry Oxygen Devices in Use Now: None Result Diagrams: 03/24/18 07:09 03/24/18 07:09 Additional Lab and Data: Lab Results 03/22/18 Range/Units 22:36 WBC 12.4 H (3.5-10.8) 10^3/ul RBC 4.26 (4.00-5.40) 10^6/ul Hgb 13.7 (12.0-16.0) g/dl Hct 39 (35-47) % MCV 91 (80-97) fL MCH 32 H (27-31) pg MCHC 36 (31-36) g/dl RDW 13 (10.5-15) % Plt Count 257 (150-450) 10^3/ul MPV 6.2 L (7.4-10.4) um3 Neut % (Auto) Pending Lymph % (Auto) Pending O'Brien % (Auto) Pending Eos % (Auto) Pending Baso % (Auto) Pending Absolute Neuts (auto) Pending Absolute Lymphs (auto) Pending Absolute Monos (auto) Pending Absolute Eos (auto) Pending Absolute Basos (auto) Pending Absolute Nucleated RBC Pending Nucleated RBC % Pending Microbiology and Other Data: Microbiology 03/23/18 00:01 Urine Culture - Preliminary Urine Escherichia Coli 03/22/18 23:15 Aerobic Blood Culture - Preliminary Blood Venous No Growth Day 1 Anaerobic Blood Culture - Preliminary No Growth Day 1 03/22/18 22:36 Aerobic Blood Culture - Preliminary Blood Venous No Growth Day 1 Anaerobic Blood Culture - Preliminary No Growth Day 1 Assess/Plan/Problems-Billing Assessment: - Patient Problems (1) Weakness Current Visit: Yes Status: Acute Code(s): R53.1 - WEAKNESS SNOMED Code(s) : 69725912 Comment: -Appreciate PT input -Rollator, PRN (2) UTI (urinary tract infection) Current Visit: Yes Status: Acute Comment: -Blood cultures (-) x 1D -Urine culture shows E. coli---sensitivity is pending (3) Urinary retention Current Visit: Yes Status: Acute Code(s): R33.9 - RETENTION OF URINE, UNSPECIFIED SNOMED Code(s): 321446317 Comment: In ED Andersen drained 1300 ml immediately. See above. (4) Multiple sclerosis Current Visit: Yes Status: Acute Code(s): G35 - MULTIPLE SCLEROSIS SNOMED Code(s): 04602057 Comment: Diazp Dr. Jimenez. (5) DVT prophylaxis Current Visit: Yes Status: Acute Code(s): ERS8726 - SNOMED Code(s): 367701440 Comment: -Continue Heparin SQ q8H Status and Disposition: -For possible D/C in 1-2 days
[2018-03-24] MEDS ORDERED: Calcium Carbonate CHEW TAB* 500 MG (TUMS) PO ONE (20:38)
[2018-03-25] MEDS: cefTRIAXone(*) 1 GM in NS 0.9% 50 ML* 50 ML IVPB SCH (02:14)
[2018-03-25] MEDS: Heparin VIAL(*) 5000 UNITS/ML VIAL (FIVE THOUSAND) SUBCUT SCH ×2 (05:46→13:14)
[2018-03-25 07:08] LABS: ABS Basophils 0 10^3/ul (0-0.2); ABS Eosinophils 0 10^3/ul (0-0.6); ABS Lymphocytes 1.7 10^3/ul (1.0-4.8); ABS Monocytes 0.7 10^3/ul (0-0.8); ABS Nucleated RBC 0 10^3/ul; Eosinophil % 0 % (0-6); Hematocrit 36 % (35-47); Hemoglobin 12.8 g/dl (12.0-16.0); Mean Corpuscular HGB Conc 36 g/dl (31-36); Mean Corpuscular Hemoglobin 32 pg (27-31); Mean Corpuscular Volume 91 fL (80-97); Mean Platelet Volume 6.4 um3 (7.4-10.4); Nucleated Red Blood Cells % 0.1; Platelet Count 261 10^3/ul (150-450); Red Blood Count 3.97 10^6/ul (4.00-5.40); Red Cell Distribution Width 12 % (10.5-15); White Blood Count 5.4 10^3/ul (3.5-10.8)
[2018-03-25] MEDS: Omeprazole CAP* 20 MG PO SCH (07:36)
[2018-03-25 07:51] VITALS: BP 143/82
[2018-03-25] MEDS: Lactobacillus Acidophilus* 1 TAB PO SCH (08:43)
[2018-03-25] MEDS: Venlafaxine EXT RELEASE CAP* 75 MG PO SCH (08:43)
[2018-03-25] MEDS: Aspirin 81 mg CHEW TAB* 81 MG TAB.CHEW PO SCH (08:43)
[2018-03-25] MEDS: ALPRAZolam TAB* 0.5 MG PO SCH (08:43)
[2018-03-25] MEDS: Baclofen TAB* 10 MG PO SCH ×2 (08:43→13:14)
[2018-03-25] MEDS: ValACYclovir (*) 500 MG TAB PO SCH (08:44)
[2018-03-25] MEDS: Multivitamins/Minerals TAB PO SCH (08:44)
[2018-03-25] MEDS: prednisoLONE 1% OPHTH.SUSP* 5 ML OPHTH.SUSP RIGHT EYE SCH ×2 (08:44→13:14)
--- NOTE | 2018-03-26 05:48 | DS ---
CC: Dr. Chris Puga; Dr. Germain Mathew; Celia Moran NP DISCHARGE SUMMARY: DATE OF ADMISSION: DATE OF DISCHARGE: DISCHARGE DIAGNOSES: As follows: 1. Weakness likely secondary to urinary tract infection. 2. Urinary tract infection with mild sepsis, sepsis resolved. 3. Urinary retention likely secondary to #2. 4. History of multiple sclerosis. DISCHARGE MEDICATIONS: As follows: 1. Alprazolam 1 mg p.o. daily. 2. Aspirin 81 mg p.o. daily. 3. Baclofen 10 mg p.o. q.i.d. 4. Calcium carbonate 500 mg p.o. daily. 5. Cefadroxil 1000 mg p.o. b.i.d. for 8 more days. 6. Cholecalciferol 2000 units p.o. daily. 7. Coenzyme Q10 1 tab p.o. daily. 8. Probiotic 1 tab p.o. daily. 9. Magnesium oxide 400 mg p.o. daily. 10. Multivitamins 1 tab p.o. daily. 11. Jud-3 fatty acid 1 capsule p.o. b.i.d. and 1 capsule is equal to 1000 mg. 12. Omeprazole 20 mg p.o. daily. 13. Prednisolone eye drops 1% ophthalmic solution 1 drop to right eye t.i.d. 14. Valacyclovir 500 mg p.o. daily. 15. Venlafaxine 75 mg p.o. daily. HISTORY OF PRESENT ILLNESS/HOSPITAL COURSE: The patient is a 63-year-old lady with history of anxiety, neurogenic bladder, and MS, who presented with feeling unwell with arthralgias and myalg ias and was subsequently found to have a diagnosis of UTI with mild sepsis on admission. She was ini tially placed on Rocephin while cultures were pending, which was found to be E. coli that is pansensi tive even to first generation cephalosporin. Given her weakness, she was also seen by Brant reed who recommended a rollator p.r.n. both inpatient and as an outpatient with no other further needs. She had been advised to follow up and/or call her PCP within 3 days post discharge, to call [facility] if her PCP cannot see her any sooner and to contact her PCP first and make sure that h e or she agrees that she is appropriate to be seen in the outpatient sooner instead of the ER and to follow up with Dr. Hughes, so that she can discuss the best time to discontinue her Andersen and she has been provided Dr. Hughes's number. She had been advised to call my office regarding any questions, co ncerns, or further clarifications regarding her discharge plans and/or prescription and to take her m edications as prescribed. PHYSICAL EXAMINATION: Shows the following vital signs with blood pressure of 143/82, 14 per minute r espiratory rate, 98.4 degrees Fahrenheit, 82 beats per minute heart rate. General Appearance: The p atient is awake, alert, and oriented x3, not in acute distress. HEENT: Normocephalic, atraumatic. PERRLA. Extraocular muscles intact. Negative for icterus. Moist oral mucosa. Negative throat eryth arlene. Neck is soft, supple with no cervical lymphadenopathy. No JVD. Heart: S1, S2 within normal li mits. Regular rate and rhythm. No murmurs, rubs, and gallops. Chest: Clear to auscultation bilate rally. Good air entry. No wheezes, rales, or rhonchi. Abdomen is soft, nondistended, nontender. N ormoactive bowel sounds x4. Extremities: No cyanosis, clubbing, or edema. Psychiatric: No active psychosis, depression, suicidal, no homicidal ideations. Skin is warm to touch. TIME SPENT: The total time spent evaluating the patient, reviewing pertinent data and appropriate do cumentation is greater than 30 minutes. [id number]/[facility] #: [id number]
== END 2018-03-25 16:30 | disposition home or self-care (01) | DRG 872 ==
LOC: ED 20:07 → MED 03-23 00:55
PROVIDERS: ADMIT Hospitalist; ATTEND Student in an Organized Health Care Education/Training Program
DX: A41.9 Sepsis, unspecified organism (principal); N39.0 Urinary tract infection, site not specified; G35 Multiple sclerosis; L71.9 Rosacea, unspecified; F41.9 Anxiety disorder, unspecified; N31.9 Neuromuscular dysfunction of bladder, unspecified; I10 Essential (primary) hypertension; R53.1 Weakness; B96.20 Unspecified Escherichia coli [E. coli] as the cause of diseases classified elsewhere; R33.9 Retention of urine, unspecified; Z79.82 Long term (current) use of aspirin; Z88.1 Allergy status to other antibiotic agents; Z82.49 Family history of ischemic heart disease and other diseases of the circulatory system; Z82.0 Family history of epilepsy and other diseases of the nervous system; Z79.52 Long term (current) use of systemic steroids
CPT/HCPCS: 36415; 71045; 74176; 80048; 80053; 81003; 81015; 83605; 83735; 84100; 84484; 85025; 85610; 85730; 86140; 87040; 87077; 87086; 87186; 93005; 99284; A9270-GY; G8978-GP-CI; G8979-GP-CH; J0696; J1644; J2270; J2543

== ENCOUNTER 2019-04-10 17:25 | Observation (INO) | payer MEDICARE, BC ==
--- NOTE | 2019-04-10 20:43 | ED ---
Neurological HPI - HPI Summary HPI Summary: This pt is a 64 Y/O F presenting to [facility] with a CC of weakness that has gotten worse since the onset on 04/06/19. She stated that she visited her PCP who recommended a ED visit for further evaluation. She stated that she has had MS for the past 40 years but has not had a flare up since 22 years ago. She states that her R side is weaker and her R leg has been dragging behind her. She states that she has had trouble urinating since she was diagnosed and uses a catheter at the end of the day before she falls asleep. She stated that she does not use a cane or walker while at home. She stated that she sees Dr. Brooks a couple months ago. She stated that her last MRI was a couple of years ago. She stated that her legs are both weak but the R one is more weak than the L. She was walking around 04/06/19 at the grocery store and was unable to walk after going to dinner later that night. She stated that her R leg has had a feeling of pressure. She denies any fever, chills, CP, SOB, abdominal pain, dysuria, and headaches. - History of Current Complaint Chief Complaint: EDWeakness Stated Complaint: WEAKNESS PER PT Time Seen by Provider: 04/10/19 20:35 Hx Obtained From: Patient Onset/Duration: Sudden Onset - 04/06/19, Still Present Timing: Constant Onset Severity: Moderate Current Severity: Moderate Pain Intensity: 0 Pain Scale Used: 0-10 Numeric Aggravating: Exertion Alleviating: Nothing Associated Signs and Symptoms: Positive: Negative - fever, chills, CP, SOB, abdominal pain, dysuria, and headaches, Unsteady Gait, Weakness - bilateral leg weakness, R side is worse than the L. Negative: Headache, Pain, Fever, Chest Pain, Shortness of Breath - Additional Pertinent History Primary Care Physician: [id number] - Allergy/Home Medications Allergies/Adverse Reactions: Allergies Allergy/AdvReac Type Severity Reaction Status Date / Time ciprofloxacin Allergy Severe Hives Verified 12/24/17 17:25 Home Medications: Home Medications Methenamine Hippurate 1 gm PO BID 04/10/19 [History Confirmed 04/11/19] PMH/Surg Hx/FS Hx/Imm Hx Previously Healthy: No Cardiovascular History: Reports: Hx Hypertension Musculoskeletal History: Denies: Hx Osteoporosis Sensory History: Reports: Hx Contacts or Glasses Denies: Hx Hearing Aid Opthamlomology History: Reports: Hx Contacts or Glasses Neurological History: Reports: Other Neuro Impairments/Disorders - MS - Cancer History Hx Chemotherapy: No Hx Radiation Therapy: No - Surgical History Surgery Procedure, Year, and Place: Removed 3 lymph nodes from neck in 1989 Infectious Disease History: No Infectious Disease History: Denies: Traveled Outside the [place] in Last 30 Days - Family History Known Family History: Negative: Hypertension, Renal Disease, Respiratory Disease, Seizure Disorder - Social History Alcohol Use: None Substance Use Type: Reports: None Smoking Status (MU): Never Smoked Tobacco Review of Systems Negative: Fever, Chills Negative: Chest Pain Negative: Shortness Of Breath Negative: Abdominal Pain Negative: dysuria Positive: Weakness - bilateral lower extremity weakness, the R side is worse than the left. . Negative: Headache All Other Systems Reviewed And Are Negative: Yes Physical Exam - Summary Physical Exam Summary: VITAL SIGNS: Reviewed. GENERAL: Patient is a well-developed and nourished female who is lying comfortable in the stretcher. Patient is not in any acute respiratory distress. HEAD AND FACE: No signs of trauma. No ecchymosis, hematomas or skull depressions. No sinus tenderness. EYES: PERRLA, EOMI x 2, No injected conjunctiva, no nystagmus. EARS: Hearing grossly intact. Ear canals and tympanic membranes are within normal limits. MOUTH: Oropharynx within normal limits. NECK: Supple, trachea is midline, no adenopathy, no JVD, no carotid bruit, no c- spine tenderness, neck with full ROM CHEST: Symmetric, no tenderness at palpation LUNGS: Clear to auscultation bilaterally. No wheezing or crackles. CVS: Regular rate and rhythm, S1 and S2 present, no murmurs or gallops appreciated. ABDOMEN: Soft, non-tender. Belly distended, no hyperactive bowel sounds. No rebound no guarding, and no masses palpated. EXTREMITIES: FROM in all major joints, no edema, no cyanosis or clubbing. NEURO: Alert and oriented x 3. Bilateral lower extremity weakness, R worse than the left. Speech is normal and follows commands. SKIN: Dry and warm Triage Information Reviewed: Yes Vital Signs On Initial Exam: Initial Vitals Temp Pulse Resp BP Pulse Ox 97.6 F 110 18 118/76 95 08/12/19 17:29 04/10/19 17:29 04/10/19 17:29 04/10/19 17:29 04/10/19 17:29 Vital Signs Reviewed: Yes Diagnostics - Vital Signs Vital Signs Temp Pulse Resp BP Pulse Ox 04/10/19 19:26 96 F 98 16 134/94 96 04/10/19 17:29 97.6 F 110 18 118/76 95 - Laboratory Result Diagrams: 04/10/19 21:13 04/10/19 21:13 Lab Statement: Any lab studies that have been ordered have been reviewed, and results considered in the medical decision making process. - Radiology CXR Radiology Interpretation Completed By: ED Physician Summary of Radiographic Findings: No acute processes. Pending offical review. Brain MRI Radiology Interpretation Completed By: Radiologist Summary of Radiographic Findings: T2/flair hyperintensities in the periventricular region consistent with. patient's history of multiple sclerosis. Subacute infarct in the left thalamus. ED Physician has reviewed this report. Re-Evaluation - Re-Evaluation First Eval Re-Evaluation Time: 21:07 Change: Unchanged Comment: Pt was given a catheter and was found to have over 1,000 mls of urine. Pt stated that she did not feel the urge to urinate. Course/Dx - Course Course Of Treatment: This pt is a 64 Y/O F presenting to [facility] with a CC of weakness that has gotten worse since the onset on 04/06/19. She stated that she visited her PCP who recommended a ED visit for further evaluation. Her PE found that she had bilateral lower extremity weakness, but the R side was worse than the L and that she had a distended bowel without hyperactive bowel sounds. At 2107 Pt was given a catheter and was found to have over 1,000 mls of urine. Pt stated that she did not feel the urge to urinate. CXR shows no acute processes. Her Brain MRI showed the following: T2/flair hyperintensities in the periventricular region consistent with. patient's history of multiple sclerosis. Subacute infarct in the left thalamus. Her urine labs are consistent with a UTI. Dr. Michele, was contacted at 2322 and stated that steroids should be held and he will admit the pt and follow up with more evaluations in the morning. Dr. Romo, Hospitalist, accepted the pt to [facility] at 2342. She was Dx with a UTI and MS - Diagnoses Provider Diagnoses: UTI (urinary tract infection), Multiple sclerosis Discharge - Sign-Out/Discharge Documenting (check all that apply): Patient Departure - admitted Patient Received Moderate/Deep Sedation with Procedure: No - Discharge Plan Condition: Stable Disposition: ADMITTED TO [facility] - Billing Disposition and Condition Condition: STABLE Disposition: Admitted to [facility] - Attestation Statements Document Initiated by Scribe: Yes Documenting Scribe: Sourav Chinchilla Provider For Whom Scribe is Documenting (Include Credential): Germain Weathers MD Scribe Attestation: ISourav, scribed for Germain Weathers MD on 04/11/19 at 0631. Scribe Documentation Reviewed: Yes Provider Attestation: The documentation as recorded by the Sourav sorensen accurately reflects the service I personally performed and the decisions made by , Germain Weathers MD Status of Scribe Document: Viewed Consult Consult: Dr. Michele, was contacted at 2322 and stated that steroids should be held and he will admit the pt and follow up with more evaluations in the morning. Dr. Romo, Hospitalist, accepted the pt to [facility] at 2342.
[2019-04-10 21:18] LABS: Urine Appearance Cloudy; Urine Bacteria 1+ (Absent); Urine Bilirubin Negative (Negative); Urine Blood 1+ (Negative); Urine Color Yellow; Urine Glucose Negative (Negative); Urine Ketones Negative (Negative); Urine Nitrite Negative (Negative); Urine Protein Negative (Negative); Urine Red Blood Cell Trace(0-2/hpf) (Absent); Urine Specific Gravity 1.009 (1.010-1.030); Urine Urobilinogen Negative (Negative); Urine White Blood Cell 3+(>20/hpf) (Absent)
[2019-04-10 21:25] LABS: ABS Lymphocytes 1.7 10^3/ul (1.0-4.8); ABS Monocytes 0.5 10^3/ul (0-0.8); ABS Neutrophils 3.6 10^3/ul (1.5-7.7); Eosinophil % 0.1 %; Hematocrit 42 % (35-47); Hemoglobin 14.5 g/dL (12.0-16.0); Lymphocyte % 29.5 %; Mean Corpuscular HGB Conc 34 g/dL (31-36); Mean Corpuscular Hemoglobin 33 pg (27-31); Mean Corpuscular Volume 96 fL (80-97); Mean Platelet Volume 6.1 fL (7.4-10.4); Platelet Count 299 10^3/uL (150-450); Red Blood Count 4.42 10^6 /uL (3.70-4.87); Red Cell Distribution Width 13 % (10-15); White Blood Count 5.9 10^3/uL (3.5-10.8)
[2019-04-10 21:43] LABS: Activated Partial Thrombo Time 20.7 seconds (26.0-38.0); INR 0.87 (0.82-1.09)
[2019-04-10 21:51] LABS: Albumin 4.6 g/dL (3.2-5.2); Calcium 10.7 mg/dL (8.6-10.3); Potassium 4.1 mmol/L (3.5-5.0); Total Bilirubin 0.4 mg/dL (0.2-1.0)
[2019-04-10 21:57] LABS: Albumin/Globulin Ratio 1.9 (1-3); BUN/Creatinine Ratio 21.5 (8-20); C Reactive Protein 5.27 mg/L (<8.01); EGFR Non-African American 60.3 (>60); Globulin 2.4 g/dL (2-4)
[2019-04-10] MEDS ORDERED: Levofloxacin 500 MG IVPREMIX(* 500 MG/100 ML BAG IVPB ONE (22:38)
[2019-04-11] MEDS ORDERED: NS 0.9% 1000 ML** 1,000 ML IV SCH (00:30)
--- NOTE | 2019-04-11 02:54 | HP ---
CC: Celia Moran NP * ADMISSION HISTORY AND PHYSICAL: DATE OF ADMISSION: 04/11/19 CHIEF COMPLAINT: Weakness. HISTORY OF PRESENT ILLNESS: This is a 64-year-old female with past medical history of MS, rosacea, anxiety/depression, neurogenic bladder, on intermittent catheterization, here due to weakness. The patient stated that up until Wednesday , she was able to walk without any assist device but on Wednesday, she could not get up and needed to use a walker to ambulate around. She was trying to get to see her neurologist; however, the covering neurologist called back stating that she should follow up in the ER rather than wait to see them as acute change. The patient stated that since Wednesday, there was no further progression of her weakness. She is more weak on the right compared to the left and there is also slightly more numbness on the right compared to the left. The patient otherwise offers no other chest pain, shortness of breath, headache, vision disturbances, nausea, vomiting, diarrhea, or any fever or chills. No other urinary burning sensation or pain with urination. While in ER, the patient was noted to be retaining about 1000 cc, so a Andersen was placed. PAST MEDICAL HISTORY: As mentioned: 1. MS. 2. Rosacea. 3. Anxiety. 4. Depression. 5. Neurogenic bladder with intermittent catheterization. 6. 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 PAST SURGICAL HISTORY: 1. Tonsillectomy. 2. Neck lymph node resection, which was for enlarged lymph nodes these were noted to be benign. HOME MEDICATIONS: The patient currently on: 1. Methenamine hippurate 1 g tablet oral twice a day. 2. Prednisolone 1 drop ophthalmic right eye t.i.d. 3. Venlafaxine 225 mg oral daily. 4. Valacyclovir 500 mg oral daily. 5. Omeprazole 20 mg oral daily. 6. Fish oil 1000 mg b.i.d. 7. Multivitamin 1 tablet p.o. daily. 8. Magnesium oxide 400 mg oral daily. 9. Probiotics 1 tablet oral daily. 10. CoQ10 one tablet oral daily. 11. Cholecalciferol 2000 units oral daily. 12. Calcium carbonate 500 mg oral daily. 13. Baclofen 10 mg 4 times a day 14. Alprazolam 1 mg oral daily. ALLERGIES: The patient states that she is allergic to CIPROFLOXACIN, which causes her to have hives; however, she did not react to the Levaquin that was given in the ER. FAMILY HISTORY: Mother had a family history of intracranial hemorrhage and father had history of heart disease. SOCIAL HISTORY: The patient does not smoke, does not drink. Her , Chad Hernadez is her healthcare proxy and she is a full code. REVIEW OF SYSTEMS: A 14-point review of systems did not reveal any new information other than what is stated in the HPI. PHYSICAL EXAMINATION GENERAL: In general, the patient is awake, alert, oriented x3, did not appear to be in any acute respiratory distress. VITAL SIGNS: In the ER, BP was noted to be 145/79, heart rate 71, respiration rate 14, saturating 99% on room air. Temperature was documented at 96 degrees Fahrenheit, and temperature max of 97.6. HEAD AND NECK: Atraumatic, normocephalic. Bilateral pupils were reactive. Oral mucosa was moist. Neck supple. No jugular venous distention. LUNGS: Clear to auscultation bilaterally. No wheezing, rhonchi, or rales. HEART: S1, S2. Regular rate and rhythm. ABDOMEN: Soft, nontender, nondistended. EXTREMITIES: No cyanosis, clubbing, or edema. DIAGNOSTIC STUDIES/LAB DATA: CBC shows normal CBC. INR was normal. APTT was low at 20.7. Chemistry was unremarkable except for minimally elevated random calcium of 10.7. Urinalysis was positive for 1+ blood and 3+ leuk esterase and 1+ bacteria. MRI of the brain was suggestive of hyperdensity in the periventricular region consistent with the patient's history of multiple sclerosis, subacute infarct in the left thalamus. Portable chest x-ray was noted to be unremarkable, official read by Radiology is still pending. IMPRESSION: This is a 64-year-old female with MS here due to worsening weakness , possible MS exacerbation versus subacute left thalamic stroke. ASSESSMENT AND PLAN: 1. Weakness right greater than left unclear if it is related to the left thalamic subacute stroke that was noted on the MRI. We will start the patient on neuro checks and we will consult Neurology, Dr. Michele, who was already notified by the ER to evaluate the patient. At this point, it is unlikely an MS flare up, so steroids were not indicated per Dr. Michele's suggestion. 2. Possible asymptomatic bacteriuria versus UTI. Again at this point, I am not fully convinced that the patient has a UTI, we will follow up urine culture. The patient already received a dose of Levaquin and further antibiotics based on urine culture results or if the patient develops any fever or any white count. 3. History of multiple sclerosis. 4. History of anxiety, restart home medications. 5. History of depression, restart home medications. 6. DVT prophylaxis with sequential compression device. [id number]/[facility] #: [id number] [facility]
[2019-04-11] MEDS ORDERED: Clopidogrel TAB* 75 MG PO SCH (09:00)
[2019-04-11] MEDS ORDERED: Multivitamins/Minerals TAB PO SCH (09:00)
[2019-04-11] MEDS ORDERED: Cholecalciferol TAB* 1000 UNITS PO SCH (09:00)
[2019-04-11] MEDS ORDERED: Aspirin 81 mg CHEW TAB* 81 MG TAB.CHEW PO SCH (09:00)
[2019-04-11] MEDS ORDERED: Methenamine Hippurate TAB* 1 GM TAB PO SCH (09:00)
[2019-04-11] MEDS ORDERED: Pantoprazole TAB * 40 MG TAB PO SCH (09:00)
[2019-04-11] MEDS ORDERED: ALPRAZolam TAB* 0.5 MG PO SCH (09:00)
[2019-04-11] MEDS ORDERED: Venlafaxine CAP (NF) 75 MG TAB PO SCH (09:00)
[2019-04-11] MEDS ORDERED: Calcium Carbonate TAB* 1250 MG (CALCIUM 500 MG) PO SCH (09:00)
[2019-04-11] MEDS ORDERED: CMCS:OMEGA-3 FATTY ACIDS (NF) 1,000 MG CAP PO SCH (09:00)
[2019-04-11] MEDS ORDERED: Iohexol 350* (CONTRAST) 500 ML MDV IV ONE (09:03)
[2019-04-11] MEDS: Baclofen TAB* 10 MG PO SCH ×3 (09:18→16:57)
[2019-04-11] MEDS: prednisoLONE 1% OPHTH.SUSP* 5 ML OPHTH.SUSP RIGHT EYE SCH ×2 (12:39→16:01)
[2019-04-11] MEDS ORDERED: Venlafaxine EXT RELEASE CAP* 75 MG PO SCH (13:00)
--- NOTE | 2019-04-11 14:18 | PN ---
Subjective Date of Service: 04/11/19 Interval History: Pt noted r sided weakness several days prior to coming to ED. Today-no change. Nathaly was placed in ED, at home her does straight caths Objective Active Medications: Alprazolam (Xanax Tab*) 0.5 mg PO BID [facility] Last Admin: 04/11/19 09:18 Dose: 0.5 mg Aspirin (Aspirin 81 Mg Chew Tab*) 81 mg PO DAILY [facility] Last Admin: 04/11/19 09:18 Dose: 81 mg Baclofen (Lioresal Tab*) 10 mg PO QID [facility] Last Admin: 04/11/19 12:39 Dose: 10 mg Calcium Carbonate (Calcium Carbonate Tab*) 1,250 mg PO DAILY [facility] Last Admin: 04/11/19 09:18 Dose: 1,250 mg Cholecalciferol (Vitamin D Tab*) 2,000 units PO DAILY [facility] Last Admin: 04/11/19 09:18 Dose: 2,000 units Clopidogrel Bisulfate (Plavix Tab*) 75 mg PO DAILY [facility] Last Admin: 04/11/19 09:19 Dose: 75 mg Fish Oil (Fish Oil (Nf)) 1,000 mg PO BID [facility]; Protocol Last Admin: 04/11/19 09:19 Dose: 1,000 mg Sodium Chloride (Ns 0.9% 1000 Ml) 1,000 mls @ 75 mls/hr IV PER RATE [facility] Last Admin: 04/11/19 03:53 Dose: 75 mls/hr Methenamine Hippurate (Hiprex Tab*) 1 gm PO BID [facility] Last Admin: 04/11/19 09:19 Dose: 1 gm Multivitamins/Minerals (Theragran/Minerals Tab*) 1 tab PO DAILY [facility] Last Admin: 04/11/19 09:18 Dose: 1 tab Pantoprazole Sodium (Protonix Tab*) 40 mg PO DAILY [facility] Last Admin: 04/11/19 09:18 Dose: 40 mg Prednisolone Acetate (Pred Forte 1%*) 1 drop RIGHT EYE TID [facility] Last Admin: 04/11/19 12:39 Dose: Not Given Valacyclovir HCl (Valtrex 500 Mg (*)) 500 mg PO MoWeFr@0900 [facility]; Protocol Venlafaxine HCl (Effexor Xr Cap*) 225 mg PO DAILY [facility] Vital Signs - 8 hr 04/11/19 04/11/19 04/11/19 07:15 09:18 09:35 Temperature 97.7 F Pulse Rate 99 Respiratory 16 18 18 Rate Blood Pressure 140/72 (mmHg) O2 Sat by Pulse 96 Oximetry Oxygen Devices in Use Now: None Appearance: 64 yo f in NAD, aAOx3 Eyes: No Scleral Icterus, PERRLA Ears/Nose/Mouth/Throat: NL Teeth, Lips, Gums, Mucous Membranes Moist Neck: NL Appearance and Movements; NL JVP, Trachea Midline Respiratory: Symmetrical Chest Expansion and Respiratory Effort, Clear to Auscultation Cardiovascular: NL Sounds; No Murmurs; No JVD, RRR Abdominal: NL Sounds; No Tenderness; No Distention Lymphatic: No Cervical Adenopathy Extremities: No Edema, No Clubbing, Cyanosis Skin: No Rash or Ulcers, No Nodules or Sclerosis Neurological: Alert and Oriented x 3, - - 4+/5 R leg weakness, , otherwise motor is 5/5 in remaining extremities, speech clear, CN2-12 grossly intact Result Diagrams: 04/10/19 21:13 04/10/19 21:13 Assess/Plan/Problems-Billing Assessment: 64 yo F with h/o MS and neurogenic bladder with new CVA and R sided weakness - Patient Problems (1) Acute CVA (cerebrovascular accident) Comment: MRI shows lacunar CVA in left thalamus. will start ASA/Plavix. CTA head and neck shows no sig stenosis Appreciate neuro consult PT/OT ongoing (2) Multiple sclerosis Comment: Fup Dr. Jimenez. (3) Urinary retention Comment: In ED Andersen drained 1300 ml immediately. will cont Andersen when at [facility] UA questionable for UTI, will await cx and not treat for now cont home methenamine hippurate (4) DVT prophylaxis Comment: -Continue Heparin SQ q8H Status and Disposition: Inpatient changed to [facility]
[2019-04-11] MEDS ORDERED: cefTRIAXone(*) 1 GM in NS 0.9% 50 ML* 50 ML IVPB SCH (16:00)
--- NOTE | 2019-04-11 16:44 | ECHO ---
*[facility]* [place] [address] Fax #: [phone] Transthoracic Echocardiogram Patient: Breana Hernadez : 1955 Study Date: 04/11/2019 Age: 64 Gender: F HR: 77 bpm Height: 64 in /162.6 cm BSA: 1.96 m^2 Weight: 181.6 lb /82.6 kg BMI: 31.2 kg/m^2 *Medical Record Clerk: * Martha Aparicio [facility] *Referring Physician: * Leyla Bass *Reading Physician: * Fred Jane MD Indications: CVA. History: Risk factors: Hypertension. Multiple sclerosis. Conclusions Summary: - Left ventricle: There is a prominent basal septal knuckle. Systolic function is normal. The estimated ejection fraction is 55-60%. Wall motion is normal; there are no regional wall motion abnormalities. - Right ventricle: Systolic function is normal. - Atrial septum: A PFO is demonstrated by color Doppler and agitated saline contrast. Positive Bubble Study. Image 81. - Mitral valve: There is trace regurgitation. - Aortic valve: There is no evidence of stenosis. There is trace regurgitation. - Tricuspid valve: There is trace to mild regurgitation. - Pericardium, extracardiac: There is no significant pericardial effusion. - Pulmonary arteries: Systolic pressure can not be accurately estimated. - Study data: No prior study is available for comparison. Study data: Transthoracic echocardiogram. Procedure: Transthoracic echocardiography was performed. Image quality was fair. A bubble study was performed. Complete 2D, spectral Doppler, and color flow Doppler. Location: Bedside. Patient status: Inpatient. Patient room number: 449-1. No prior study is available for comparison. Rhythm: Normal sinus rhythm. Findings Left ventricle: The cavity size is below normal. Wall thickness is mildly increased. There is a prominent basal septal knuckle. Systolic function is normal. The estimated ejection fraction is 55-60%. Wall motion is normal; there are no regional wall motion abnormalities. Doppler parameters are consistent with abnormal left ventricular relaxation (grade 1 diastolic dysfunction). Right ventricle: The cavity size is mildly to moderately dilated. Wall thickness is mildly increased. Systolic function is normal. Left atrium: The atrium is normal in size. Right atrium: The atrium is mildly dilated. Atrial septum: A PFO is demonstrated by color Doppler and agitated saline contrast. Positive Bubble Study. Image 81. Mitral valve: Appears mildly calcified. The leaflets are mildly thickened. There is no evidence of stenosis. There is trace regurgitation. Aortic valve: The valve is trileaflet. The leaflets are mildly thickened. There is no evidence of stenosis. There is trace regurgitation. Tricuspid valve: The leaflets are normal thickness. There is no evidence of stenosis. There is trace to mild regurgitation. Pulmonic valve: The leaflets are normal thickness. There is no evidence of stenosis. There is trace regurgitation. Aorta: Ascending aorta: The ascending aorta is appears normal. The aortic root appears normal. The aortic arch appears normal. Pericardium: A prominent pericardial fat pad is present. There is no significant pericardial effusion. Pulmonary arteries: The main pulmonary artery is normal-sized. Systolic pressure can not be accurately estimated. Systemic veins: Inferior vena cava: The vessel is normal in size. There is (>= 50%) respiratory change in the IVC dimension. Measurements Left ventricle Value Ref Right atrium continued Value Ref BISMARK, LAX (L) 3.2 cm 3.8 - SI dim, ES, A4C 4.8 cm 3.4 - 5.2 5.3 ESD, LAX 2.2 cm 2.2 - SI dim/bsa, ES, 2.4 cm/m^2 1.9 - 3.5 A4C 3.1 FS, LAX 31 % 27 - 45 Estimated RAP 3 mm Hg -------- PW, ED, LAX (H) 1.1 cm 0.6 - 0.9 Aortic valve Value Ref FS 31 % 27 - 45 Alex diam, S 2.0 cm 1.9 - PW, ED (H) 1.1 cm 0.6 - 2.7 0.9 Alex diam/bsa, S (L) 1.0 cm/m^2 1.1 - E', lat alex, TDI (L) 7.1 cm/sec >=10.0 1. 5 E/e', lat alex, 9 -------- Peak v, S 1.13 m/sec ----- --- TDI VTI, S 20.9 cm -------- Mean grad, S 2.3 mm Hg -------- LVOT Value Ref Peak grad, S 5.1 mm Hg -------- Peak tracy, S 0.9 m/sec -------- LVOT/AV, VTI ratio 1.03 -------- VTI, S 21.4 cm -------- Peak grad, S 3 mm Hg -------- Mitral valve Value Ref Mean grad, S 2 mm Hg -------- Peak E 0.65 m/sec -------- Peak A 0.89 m/sec -------- Ventricular septum Value Ref Decel time 154 ms -------- IVS, ED (H) 1.2 cm 0.6 - Peak E/A ratio 0.72 -------- 0.9 Pulmonic valve Value Ref Right ventricle Value Ref Peak v, S 0.84 m/sec -------- AW thickness, ED (H) 0.6 cm 0.1 - Peak grad, S 2.8 mm Hg -------- 0.5 BISMARK, LAX 3.9 cm -------- Aortic root Value Ref BISMARK major ax, A4C (L) 5.2 cm 5.9 - Root diam 3.5 cm <4.1 8.3 Ascending aorta Value Ref Left atrium Value Ref AAo AP diam, S 2.9 cm -------- LA ID 3.7 cm -------- SI dim ES, LAX 3.7 cm -------- Aortic arch Value Ref ML dim, A4C 3.9 cm -------- Arch diam 2.7 cm -------- SI dim, A4C 4.9 cm -------- Vol, ES, 2-p 60 ml -------- Inferior vena cava Value Ref Vol/bsa, ES, 2-p 31 ml/m^2 16 - 34 Diam 1.7 cm -------- Right atrium Value Ref SI dim, ES 4.8 cm 3.4 - 5.3 ML dim, ES, A4C (H) 5.0 cm 2.6 - 4.4 Legend: (L) and (H) peggy values outside specified reference range. Prepared and electronically signed by Fred Jane MD 04/11/2019 16:44
--- NOTE | 2019-04-11 20:36 | DS ---
CC: Celia Moran NP; Dr. Jimenez; Dr. Michele * DISCHARGE SUMMARY: DATE OF ADMISSION: 04/11/19 DATE OF DISCHARGE: 04/11/19 PRIMARY CARE PROVIDER: Celia Moran NP. DISPOSITION AT DISCHARGE: Home. CONDITION ON DISCHARGE: Stable. DISCHARGE DIAGNOSES: 1. Right-sided weakness due to subacute/acute left thalamic lacunar cerebrovascular accident, ischemic. 2. Klebsiella urinary tract infection, likely Andersen associated in a patient who uses straight catheterizations at home for neurogenic bladder. SECONDARY DIAGNOSES: 1. History of multiple sclerosis for the past 30 years. 2. History of neurogenic bladder with straight catheterizations. 3. Rosacea. 4. Anxiety. 5. Depression. 6. History of possibility of herpetic infection in the patient's right eye, on valacyclovir. 7. History of benign enlarged lymph node resection from the neck. MEDICATIONS AT DISCHARGE: Include: 1. Cefdinir 300 mg p.o. b.i.d. for a total of 5 days. 2. Aspirin 81 mg daily. 3. Plavix 75 mg daily for a month, then stop and continue aspirin. Remaining medications are unchanged and include: 1. Effexor 225 mg daily. 2. Valtrex 500 mg daily. 3. Prednisolone ophthalmic solution 1% to right eye as previously prescribed. 4. Prilosec 20 mg daily. 5. Drexel-3 fatty acids 1 capsule b.i.d. 6. Multivitamin 1 tablet daily. 7. Methenamine hippurate 1 g b.i.d. 8. Magnesium oxide 400 mg daily. 9. Probiotic 1 capsule daily. 10. Coenzyme Q10 one tablet daily. 11. Vitamin D3 at 1000 units daily. 12. Calcium carbonate/vitamin D 500 mg daily. 13. Baclofen 10 mg 4 times a day. 14. Alprazolam XR 1 mg daily. LABORATORY DATA AND STUDIES PERFORMED DURING THE HOSPITAL STAY: Included ESR was obtained and noted to be 10. CBC grossly unremarkable, please see history and physical. The patient's basic metabolic panel was grossly unremarkable, apart from slight elevation of calcium at 10.7, please see history and physical. Urinalysis positive for esterase, white blood cells, trace rbc's, and trace bacteria. Microbiology studies from urine cultures were positive for over 100, 000 colonies of Klebsiella pneumoniae, sensitivities pending. Head and neck CTA obtained on 04/11/19. CTA neck showed no significant carotid or vertebral stenosis. CTA head showed no internal carotid artery stenosis and no aneurysm, vascular malformation, occlusion, or stenosis. MRI of the brain, impression: "T2 FLAIR hyperintensities of the periventricular region consistent with the patient's history of MS. Subacute infarct in the left thalamus." Transthoracic echocardiogram showed positive bubble study with patent foramen ovale. There was EF of 55% to 60% with no regional wall motion abnormality. There was trace mitral regurgitation and trace aortic regurgitation. There was no prior study for comparison. HOSPITALIZATION COURSE: Breana Hernadez is a 64-year-old female with history of MS with neurogenic bladder who presented to the hospital after experiencing 4 days or so of right-sided weakness. The patient stated that she thought that it was her multiple sclerosis flaring up. When she came into the ED, she was noted to have right-sided weakness and a consequent MRI of the brain showed positive subacute to acute left thalamic infarct. The patient was admitted to the telemetry monitored bed. She was placed on aspirin and Plavix. Subsequent CT angiogram of the head and neck did not show any significant stenosis. Transthoracic echocardiogram showed positive bubble study. Dr. Michele saw the patient in neurology evaluation. The thought was that the patient's positive PFO is not clinically significant in this case. The patient is recommended to continue aspirin and Plavix for a total of 1 month and then switch to aspirin only. Unfortunately, the patient requested to be discharged from the hospital tonight and we are not able to obtain fasting lipid profile. We did not have any blood work drawn after the patient's admission and she came in with her laboratory values at 2100, which were not fasting. It is recommended for the patient to have an outpatient fasting lipid evaluation for possibility of initiation of statin treatment. For the time being, she is recommended to be on low-fat diet. The patient has history of neurogenic bladder and uses straight cath at home. She stated that she also is able to urinate spontaneously from time to time. She was noted to have significant urinary retention and Andersen catheter was placed. This is going to be discontinued at discharge. The patient is recommended to use straight catheterization on a more frequent basis, likely 3 times a day. Her urinalysis was positive and her urine cultures preliminary result was positive for Klebsiella pneumoniae. The patient is going to be placed on cefdinir for a total of 5 days for likely Andersen associated UTI. For physical exam at the time of discharge, please see daily progress notes, but in short, the patient has mild 4+/5 right leg weakness. She does not appear to have a significant decrease in her motor strength of the right arm. She usually uses a cane or a walker at baseline and her gait is steady when using a walker and that was evaluated by physical therapy. The patient was recommended and prescribed physical therapy as an outpatient. Please note that this is a short summary of the patient's hospitalization. Please refer to further medical records for details. TIME SPENT: Approximately 40 minutes were spent on the patient's discharge. [id number]/[facility] #: [id number] JOHANN
--- NOTE | 2019-04-11 23:15 | CONS ---
CC: Dr. Jimenez * CONSULTATION REPORT: DATE OF CONSULT: 04/11/19 PATIENT OF: Celia Moran NP; Mery Jimenez MD; and Dr. Bass. HISTORY OF PRESENT ILLNESS: This is a 64-year-old right-handed woman with a longstanding history of multiple sclerosis leaving her with some mild gait disturbance, but able to walk with a cane up until Wednesday. She was fine in the morning, but then after sitting in a chair could not get up and walk and this was an acute weakness in her leg and she thought her right arm was slightly weak as well. She has not worsened since Wednesday, neither has she improved. The right leg is slightly numb compared to the left as well. She had no headaches, no visual changes, no problems with speech. No nausea or vomiting. Of note, she had some urinary retention and did pass a 1000 cc after a Andersen was placed. PAST MEDICAL HISTORY: She has a history of MS, but is on no medications, rosacea, anxiety, depression, neurogenic bladder, on intermittent catheterization, right eye scar secondary to probable herpetic disease. PAST SURGICAL HISTORY: Surgeries include tonsillectomy, right lymph node resection that was benign. MEDICATIONS: At home includes: 1. Mag oxide 400 mg daily. 2. Multivitamins. 3. Omeprazole 20 mg daily. 4. Valacyclovir 500 mg daily. 5. Venlafaxine 225 mg daily. 6. Prednisolone eye drops t.i.d. 7. Methenamine hippurate 1 g twice a day. 8. Probiotics. 9. Coenzyme-Q. 10. Calciferol 2000 units daily. 11. Baclofen 10 mg 4 times a day. 12. Alprazolam 1 mg daily. ALLERGIES: She is allergic to CIPRO. FAMILY HISTORY: Significant for mother who had intracranial hemorrhage, father had heart disease. SOCIAL HISTORY: She does not smoke, drink or use drugs. REVIEW OF SYSTEMS: Negative in all 14 spheres other than HPI. PHYSICAL EXAMINATION: Temperature 98.3, pulse 91, respiratory rate 18, blood pressure 138/72. She is alert and oriented, with normal speech and comprehension. Cranial nerves II through XII show scar in her right eye. Her left eye is normal including sharp disc. Motor exam revealed trace weakness in the right director group sales. I could slightly wiggle my finger in her right director group sales and not her left director group sales. She is right handed. There is no pronator drift. Strength in her right leg was intact. Direct testing reveals no drift. When she walks, she puts weight less well on her right leg than her left, but was able to walk without assistance. Reflexes were 3+ in the legs, equivocal toes, 2 in the arms. Sensation intact to light touch other than mild decrease on the right leg. Chest is clear. Cardiovascular: Regular rate and rhythm. Abdomen is soft, with positive bowel sounds. DIAGNOSTIC STUDIES/LAB DATA: I reviewed her MRI scan and reviewed it with the radiologist. It did show evidence of chronic multiple sclerosis with periventricular white matter disease, but in addition there was a subacute left thalamic infarct that showed in the DWI, but not ADC testing, consistent with stroke. She had further stroke workup including a CTA, which showed no significant stenosis or vascular disease. She had a cardiac echo that was normal and had a positive bubble study, but no atrial aneurysm. She had blood work including normal CBC and INR. PTT was 20.7. Chemistries were normal other than a calcium of 10.7. UA had 2+ leukocyte esterase. IMPRESSION AND PLAN: I discussed with Breana that her symptoms of right-sided weakness occurring acutely is a stroke-like presentation, even though MS can cause the stroke-like presentation. It has been many years since she has had any flare of her MS, and with the MRI scan showing left thalamic stroke rather than MS plaque, stroke is by far the most likely cause of her symptoms. She will be on aspirin and Plavix, and as the patient strongly wanted to go home today so she is being sent home on aspirin and Plavix, with Dr. Bass arranging for fasting lipids to be followed up through her primary. A decision will need to be made whether further cardiac monitoring will be done as an outpatient. I have spoken with Dr. Jimenez after the MRI scan, but not following the tests that were done during the course of the day. Thank you for sharing her case. [id number]/[facility] #: [id number] JOHANN
[2019-04-11 23:53] VITALS: BP 142/81
[2019-04-12] MEDS ORDERED: ValACYclovir (*) 500 MG TAB PO SCH (09:00)
== END 2019-04-11 21:45 | disposition home or self-care (01) ==
LOC: ED 17:25 → INTOOBSV 04-11 00:22 → MEDTELE 04-11 00:22
PROVIDERS: ADMIT Internal Medicine; ATTEND Internal Medicine
DX: I63.89 Other cerebral infarction (principal); G81.91 Hemiplegia, unspecified affecting right dominant side; T83.511A Infection and inflammatory reaction due to indwelling urethral catheter, initial encounter; G35 Multiple sclerosis; N31.9 Neuromuscular dysfunction of bladder, unspecified; L71.9 Rosacea, unspecified; F32.9 Major depressive disorder, single episode, unspecified; Z79.82 Long term (current) use of aspirin; Z79.899 Other long term (current) drug therapy; I10 Essential (primary) hypertension
CPT/HCPCS: 36415; 70496; 70498; 70551; 71045; 80053; 81003; 81015; 85025; 85610; 85652; 85730; 86140; 87077; 87086; 87186; 93306; 96365; 96375; 99284; A9270-GY; G0378; G8978-GP-CI; G8979-GP-CI; J0696; J1956; Q9967

== ENCOUNTER 2019-10-31 17:32 | Emergency (ER) | payer MEDICARE, BC ==
[2019-10-31 17:54] VITALS: BP 126/83
--- NOTE | 2019-10-31 17:55 | UC ---
Skin Complaint HPI - HPI Summary HPI Summary: 64 yo female presents with RIGHT foot wound. She tells me that about 3 weeks ago she got a pedicure and the beautician was scraping her feet. A few days later pt noticed a scab to the lateral aspect of her right foot. Since that time it has been slowly healing with a brownish/green appearing scab. Over the last 3-5 days she has noticed redness around the area and is more tender to touch. She has not been applying any dressings or creams. Denies fever. No hx of diabetes. - History of Current Complaint Chief Complaint: UCSkin Stated Complaint: SOFT TISSUE Hx Obtained From: Patient Onset/Duration: Gradual Onset Onset Severity: Mild Current Severity: Mild Pain Intensity: 4 Pain Scale Used: 0-10 Numeric - Allergy/Home Medications Allergies/Adverse Reactions: Allergies Allergy/AdvReac Type Severity Reaction Status Date / Time ciprofloxacin Allergy Severe Hives Verified 10/31/19 17:54 Home Medications: Home Medications Baclofen TAB* [Lioresal TAB*] 10 mg PO QID 12/24/17 [History Confirmed 10/31/19] Cholecalciferol CAP/TAB(NF) [Vitamin D3 CAP/TAB (NF)] 2,000 unit PO DAILY [History Confirmed 10/31/19] Cq 10 1 tab PO DAILY 12/24/17 [History Confirmed 10/31/19] L.acidoph,Paracasei, B.lactis [Probiotic] 1 tab PO DAILY 12/24/17 [History Confirmed 10/31/19] Omeprazole CAP (NF) [Prilosec CAP* 20 MG] 20 mg PO DAILY 12/24/17 [History Confirmed 10/31/19] Venlafaxine CAP (NF) [Effexor CAP (NF)] 225 mg PO DAILY 12/24/17 [History Confirmed 10/31/19] ALPRAZolam [Alprazolam Xr] 1 mg PO DAILY 03/23/18 [History Confirmed 10/31/19] Calcium Carbonate [Calcium] 500 mg PO DAILY 03/23/18 [History Confirmed 10/31/19 ] Magnesium Oxide [Magnesium] 400 mg PO DAILY 03/23/18 [History Confirmed 10/31/19 ] Multivitamins/Minerals TAB* [Theragran/minerals TAB*] 1 tab PO DAILY 03/23/18 [ History Confirmed 10/31/19] [place]-3 Fatty Acids/Fish Oil [Fish Oil 1,000 mg Capsule] 1 each PO BID 03/23/18 [History Confirmed 10/31/19] ValACYclovir (*) [Valtrex 500 mg (*)] 500 mg PO DAILY 03/23/18 [History Confirmed 10/31/19] prednisoLONE 1% OPHTH.SUSP* [Pred Forte 1%*] 1 drop RIGHT EYE TID 03/23/18 [ History Confirmed 10/31/19] Methenamine Hippurate 1 gm PO BID 04/10/19 [History Confirmed 10/31/19] Aspirin 81 mg CHEW TAB* 81 mg PO DAILY #30 tab.chew 04/11/19 [Rx Confirmed 10/30] Acetaminophen TAB* [Tylenol TAB*] 650 mg PO ONCE PRN 10/31/19 [History Confirmed 10/31/19] Cephalexin CAP* [Keflex CAP*] 500 mg PO TID #21 cap 10/31/19 [Rx] Mupirocin 2% CREAM* [Bactroban 2% CREAM*] 1 applic TOPICAL DAILY #1 tube [Rx] PMH/Surg Hx/FS Hx/Imm Hx - Additional Past Medical History Additional PMH: MS CVA Hepatitis A UC Anxiety - Surgical History Surgical History: Yes Surgery Procedure, Year, and Place: Removed 3 lymph nodes from neck in 1989 - Family History Known Family History: Negative: Hypertension, Renal Disease, Respiratory Disease, Seizure Disorder - Social History Lives: With Family Alcohol Use: None Substance Use Type: None Smoking Status (MU): Never Smoked Tobacco - Immunization History Most Recent Influenza Vaccination: 2018 Most Recent Pneumonia Vaccination: Pt. reports having received Review of Systems All Other Systems Reviewed And Are Negative: No Constitutional: Positive: Negative Skin: Positive: Other - Right foot wound Respiratory: Positive: Negative Cardiovascular: Positive: Negative Musculoskeletal: Positive: Negative Neurological/Mental Status: Positive: Negative Psychological: Positive: Negative Physical Exam - Summary Physical Exam Summary: GENERAL: NAD. WDWN. No pain distress. SKIN: RIGHT FOOT: Lateral aspect overlying the lateral 5th base MT there is a 1.0cm brownish/yellow/green scab that is dry without eschar or drainage. Mild erythema extending 2.0cm above this area with mild TTP. No streaking. CHEST: No accessory muscle use. Breathing comfortably and in no distress. CV: Pulses intact. Cap refill <2seconds MSK: Moves all toes without pain NEURO: Alert. PSYCH: Age appropriate behavior. Triage Information Reviewed: Yes Vital Signs: Initial Vital Signs Temp 98.2 F 10/31/19 17:45 Pulse 87 10/31/19 17:45 Resp 16 10/31/19 17:45 BP 126/83 10/31/19 17:45 Pulse Ox 97 10/31/19 17:45 Vital Signs Reviewed: Yes Course/Dx - Course Course Of Treatment: Wound to right foot. Slowly healing with ?mild cellulitis. Will place her on keflex and bactroban cream and have her change dressings daily. Recommend recheck in 1 week with PCP or sooner if symptoms change. - Diagnoses Provider Diagnosis: Wound of right foot Discharge ED - Sign-Out/Discharge Documenting (check all that apply): Patient Departure All imaging exams completed and their final reports reviewed: No Studies - Discharge Plan Condition: Stable Disposition: HOME Prescriptions: Cephalexin CAP* [Keflex CAP*] 500 mg PO TID #21 cap Mupirocin 2% CREAM* [Bactroban 2% CREAM*] 1 applic TOPICAL DAILY #1 tube Patient Education Materials: Wound Infection (ED), Chronic Wound Care (ED) Referrals: Celia Moran NP [Primary Care Provider] - 1 Week Additional Instructions: If you develop a fever, shortness of breath, chest pain, new or worsening symptoms - please call your PCP or go to the ED immediately. Change the dressing daily applying a small amount of antibiotic ointment Take the antibiotic as prescribed. Recheck in 1 week or sooner if area changes - Billing Disposition and Condition Condition: STABLE Disposition: Home
[2019-10-31] MEDS ORDERED: Mupirocin 2% OINT* TUBE TOPICAL ONE (18:06)
== END 2019-10-31 18:38 | disposition home or self-care (01) ==
LOC: UCEAST 17:32
DX: S90.921A Unspecified superficial injury of right foot, initial encounter (principal); G35 Multiple sclerosis; F41.9 Anxiety disorder, unspecified; Z88.1 Allergy status to other antibiotic agents; Z79.899 Other long term (current) drug therapy; Z86.73 Personal history of transient ischemic attack (TIA), and cerebral infarction without residual deficits; Z79.82 Long term (current) use of aspirin; X58.XXXA Exposure to other specified factors, initial encounter; Y92.9 Unspecified place or not applicable
CPT/HCPCS: 99212; G0463

== ENCOUNTER 2020-11-19 11:08 | Observation (INO) ==
[~2020-11-19 11:08] MED LIST: Buffered Lidocaine 1% SYRIN 1 ml INTRADERM ONE; Famotidine IV 10 MG/ML 2 ml VIAL (20 mg) IV ONE; Lactated Ringers 1000 ml BAG 1,000 ML IV SCH; Lidocaine 2% PF 5 ML VIAL ONE; Midazolam 2 mg/2 ml VIAL 1 mg/ml 2 ml VIAL (2 mg) ONE; Ondansetron 4 mg VIAL 2 MG/ML 2 ml VIAL ONE; Propofol 10 MG/ML 20 ML BTL ONE; Rocuronium 50 mg VIAL 10 mg/ml 5 ml VIAL (50 mg) ONE; fentaNYL 250 mcg/5 ml 50 MCG/ML 5 ml VIAL (250 MCG) ONE
[2020-11-19] MEDS ORDERED: ceFAZolin 2 GM PREMIX 2 GM/50 ML BAG ONE (12:00)
[2020-11-19] MEDS ORDERED: Famotidine IV 10 MG/ML 2 ml VIAL (20 mg) ONE (12:00)
[2020-11-19] MEDS ORDERED: Buffered Lidocaine 1% SYRIN 1 ml INTRADERM ONE (12:00)
[2020-11-19] MEDS ORDERED: ROPIVACAINE 5 MG/ML 30 ML BTL (0.5%) ONE (12:56)
[2020-11-19] MEDS ORDERED: Ketamine HCL 50 mg/ml 10 ml VIAL (500 MG) ONE (13:40)
[2020-11-19] MEDS ORDERED: Dexamethasone IV 4 MG/ML VIAL 1 ml VIAL ONE (13:44)
[2020-11-19] MEDS ORDERED: Phenylephrine 40 mcg/mL 10mL (400mcg) SYRINGE ONE (13:54)
[2020-11-19] MEDS ORDERED: Lactulose 30 ml UDC PO PRN (14:05)
[2020-11-19] MEDS ORDERED: Ondansetron 4 mg VIAL 2 MG/ML 2 ml VIAL IV PRN ×2 (14:05→16:00)
[2020-11-19] MEDS ORDERED: Ondansetron ODT 4 mg TAB 4 MG TAB PO PRN (14:05)
[2020-11-19] MEDS ORDERED: diPHENhydraMINE IV 50 MG/ML 1 ml VIAL (BENADRYL) IV PRN (14:05)
[2020-11-19] MEDS ORDERED: Magnesium Hydroxide LIQ 30 ML UDC PO PRN (14:05)
[2020-11-19] MEDS ORDERED: Morphine 2 MG/ML SYRINGE IV PRN (14:05)
[2020-11-19] MEDS ORDERED: diPHENhydraMINE 25 mg TAB PO PRN (14:05)
[2020-11-19] MEDS ORDERED: HYDROmorphone 1 MG/1 ML SYRINGE IV PRN (16:00)
[2020-11-19] MEDS ORDERED: Naloxone 0.4 mg VIAL 0.4 mg/ml 1 ml VIAL IV PRN (16:00)
[2020-11-19] MEDS ORDERED: fentaNYL 100 mcg/2 ml 50 MCG/ML VIAL ONE (16:24)
[2020-11-19] MEDS: fentaNYL 100 mcg/2 ml 50 MCG/ML VIAL IV PRN ×2 (16:38→17:21)
[2020-11-19] MEDS ORDERED: HYDROmorphone 1 MG/1 ML SYRINGE ONE (16:57)
[2020-11-19 17:16] LABS: Urine Appearance Clear; Urine Bilirubin Negative (Negative); Urine Blood Negative (Negative); Urine Color Yellow; Urine Glucose Negative (Negative); Urine Ketones Negative (Negative); Urine Nitrite Negative (Negative); Urine Protein Negative (Negative); Urine Specific Gravity 1.024 (1.010-1.030); Urine Urobilinogen Negative (Negative)
[2020-11-19] MEDS: Lactated Ringers 1000 ml BAG 1,000 ML IV SCH (18:05)
[2020-11-19] MEDS: CMC:Venlafaxine 25 mg TAB (NF) PO SCH (19:54)
[2020-11-19] MEDS: Venlafaxine XR 75 mg PO SCH (19:55)
[2020-11-19] MEDS: ceFAZolin 1 GM ADVAN 1 GM in NS 0.9% 50 ML 50 ML IVPB SCH (21:33)
[2020-11-19] MEDS: Magnesium Hydroxide LIQ 30 ML UDC PO SCH (21:37)
[2020-11-20] MEDS: ceFAZolin 1 GM ADVAN 1 GM in NS 0.9% 50 ML 50 ML IVPB SCH ×2 (05:01→13:37)
[2020-11-20 06:16] LABS: Hematocrit 31 % (35-47); Hemoglobin 10.6 g/dL (12.0-16.0); Mean Platelet Volume 6.6 fL (7.4-10.4); Platelet Count 263 10^3/uL (150-450)
[2020-11-20 06:20] LABS: BUN/Creatinine Ratio 16.2 (8-20); Calcium 8.2 mg/dL (8.6-10.3); EGFR African American 94.7 (>60); EGFR Non-African American 78.3 (>60); Potassium 4.2 mmol/L (3.5-5.0)
[2020-11-20] MEDS: Vitamin THERAPEUTIC TAB PO SCH (09:36)
[2020-11-20] MEDS: Magnesium Hydroxide LIQ 30 ML UDC PO SCH ×2 (09:37→20:18)
[2020-11-20] MEDS: Lactated Ringers 1000 ml BAG 1,000 ML IV SCH (13:51)
[2020-11-20] MEDS: Venlafaxine XR 75 mg PO SCH (17:27)
[2020-11-20] MEDS: CMC:Venlafaxine 25 mg TAB (NF) PO SCH (17:28)
[2020-11-21 06:08] LABS: Hematocrit 31 % (35-47); Hemoglobin 10.5 g/dL (12.0-16.0); Mean Platelet Volume 6.5 fL (7.4-10.4); Platelet Count 244 10^3/uL (150-450)
[2020-11-21] MEDS: Magnesium Hydroxide LIQ 30 ML UDC PO SCH (08:57)
[2020-11-21] MEDS: Vitamin THERAPEUTIC TAB PO SCH (08:57)
[2020-11-21] MEDS ORDERED: Iohexol 350 (CONTRAST) 500 ML MDV IV ONE (09:38)
[2020-11-21 11:10] VITALS: BP 118/63
== END 2020-11-21 13:38 ==
LOC: INTOOBSV 11:08 → AA 11:08 → SSU 17:50
PROVIDERS: ADMIT Orthopaedic Surgery Adult Reconstructive Orthopaedic Surgery; ATTEND Orthopaedic Surgery Adult Reconstructive Orthopaedic Surgery

== ENCOUNTER 2020-11-21 07:35 | Inpatient (IN) ==
[2020-11-21] MEDS: Venlafaxine XR 75 mg PO SCH (17:28)
[2020-11-21] MEDS: Senna TAB 8.6 mg TAB PO PRN (20:22)
[2020-11-21] MEDS: Magnesium Hydroxide LIQ 30 ML UDC PO PRN (20:26)
[2020-11-22 07:16] LABS: ABS Basophils 0.1 10^3/ul (0-0.2); ABS Eosinophils 0.3 10^3/ul (0-0.6); ABS Lymphocytes 1.7 10^3/ul (1.0-4.8); ABS Monocytes 0.7 10^3/ul (0-0.8); Eosinophil % 4.7 %; Hematocrit 27 % (35-47); Hemoglobin 9.4 g/dL (12.0-16.0); Lymphocyte % 25.5 %; Mean Corpuscular HGB Conc 35 g/dL (31-36); Mean Corpuscular Hemoglobin 33 pg (27-31); Mean Corpuscular Volume 95 fL (80-97); Mean Platelet Volume 6.4 fL (7.4-10.4); Nucleated Red Blood Cells % 0.1; Platelet Count 236 10^3/uL (150-450); Red Cell Distribution Width 13 % (10-15); White Blood Count 6.8 10^3/uL (3.5-10.8)
[2020-11-22 07:36] LABS: Albumin 3.3 g/dL (3.2-5.2); Albumin/Globulin Ratio 1.4 (1-3); BUN/Creatinine Ratio 15.9 (8-20); Calcium 8.1 mg/dL (8.6-10.3); EGFR African American 102.7 (>60); EGFR Non-African American 84.9 (>60); Globulin 2.3 g/dL (2-4); Potassium 3.8 mmol/L (3.5-5.0); Total Bilirubin 0.4 mg/dL (0.2-1.0); Total Protein 5.6 g/dL (6.4-8.9)
[2020-11-22] MEDS: Venlafaxine XR 75 mg PO SCH (17:48)
[2020-11-22] MEDS: CMC:Venlafaxine 25 mg TAB (NF) PO SCH (17:49)
[2020-11-22] MEDS: Calcium Carb (TUMS) 500 mg CHEW TAB PO PRN (18:39)
[2020-11-22] MEDS: Magnesium Hydroxide LIQ 30 ML UDC PO PRN (19:22)
[2020-11-23] MEDS: Calcium Carb (TUMS) 500 mg CHEW TAB PO PRN (00:36)
[2020-11-23 06:35] LABS: Hematocrit 27 % (35-47); Hemoglobin 9.4 g/dL (12.0-16.0)
[2020-11-23] MEDS: Venlafaxine XR 75 mg PO SCH (18:42)
[2020-11-23] MEDS: CMC:Venlafaxine 25 mg TAB (NF) PO SCH (18:42)
[2020-11-23] MEDS: Nystatin TOP POWDER 15 GM BTL TOPICAL SCH (20:50)
[2020-11-24] MEDS: Multivitamins/Minerals TAB PO SCH (11:11)
[2020-11-24] MEDS: Nystatin TOP POWDER 15 GM BTL TOPICAL SCH ×2 (11:13→20:16)
[2020-11-24] MEDS: Venlafaxine XR 75 mg PO SCH (17:43)
[2020-11-24] MEDS: CMC:Venlafaxine 25 mg TAB (NF) PO SCH (17:43)
[2020-11-24] MEDS: Senna TAB 8.6 mg TAB PO PRN (19:54)
[2020-11-25] MEDS: Multivitamins/Minerals TAB PO SCH (08:41)
[2020-11-25] MEDS: Nystatin TOP POWDER 15 GM BTL TOPICAL SCH ×2 (12:20→21:18)
[2020-11-25] MEDS: CMC:Venlafaxine 25 mg TAB (NF) PO SCH (17:52)
[2020-11-25] MEDS: Venlafaxine XR 75 mg PO SCH (17:52)
[2020-11-25] MEDS: Senna TAB 8.6 mg TAB PO PRN (21:17)
[2020-11-26 06:45] LABS: Hematocrit 28 % (35-47); Hemoglobin 9.7 g/dL (12.0-16.0)
[2020-11-26] MEDS: Multivitamins/Minerals TAB PO SCH (08:16)
[2020-11-26] MEDS: Nystatin TOP POWDER 15 GM BTL TOPICAL SCH ×2 (09:30→21:29)
[2020-11-26] MEDS: Magnesium Hydroxide LIQ 30 ML UDC PO PRN (15:58)
[2020-11-26] MEDS: CMC:Venlafaxine 25 mg TAB (NF) PO SCH (18:50)
[2020-11-26] MEDS: Venlafaxine XR 75 mg PO SCH (18:50)
[2020-11-27] MEDS: Calcium Carb (TUMS) 500 mg CHEW TAB PO PRN ×2 (01:16→09:18)
[2020-11-27] MEDS: Multivitamins/Minerals TAB PO SCH (08:54)
[2020-11-27] MEDS: Nystatin TOP POWDER 15 GM BTL TOPICAL SCH ×2 (10:30→21:35)
[2020-11-27] MEDS: Venlafaxine XR 75 mg PO SCH (17:27)
[2020-11-27] MEDS: CMC:Venlafaxine 25 mg TAB (NF) PO SCH (17:27)
[2020-11-28] MEDS: Multivitamins/Minerals TAB PO SCH (08:46)
[2020-11-28] MEDS: Nystatin TOP POWDER 15 GM BTL TOPICAL SCH ×2 (09:26→21:30)
[2020-11-28] MEDS: CMC:Venlafaxine 25 mg TAB (NF) PO SCH (18:12)
[2020-11-28] MEDS: Venlafaxine XR 75 mg PO SCH (18:13)
[2020-11-28] MEDS: Senna TAB 8.6 mg TAB PO PRN (21:29)
[2020-11-29 07:27] LABS: ABS Basophils 0.1 10^3/ul (0-0.2); ABS Eosinophils 0.3 10^3/ul (0-0.6); ABS Lymphocytes 1.5 10^3/ul (1.0-4.8); ABS Monocytes 0.6 10^3/ul (0-0.8); ABS Neutrophils 3.5 10^3/ul (1.5-7.7); Eosinophil % 4.8 %; Hematocrit 28 % (35-47); Hemoglobin 9.6 g/dL (12.0-16.0); Lymphocyte % 24.8 %; Mean Corpuscular HGB Conc 35 g/dL (31-36); Mean Corpuscular Hemoglobin 34 pg (27-31); Mean Corpuscular Volume 96 fL (80-97); Mean Platelet Volume 6.2 fL (7.4-10.4); Platelet Count 442 10^3/uL (150-450); Red Blood Count 2.88 10^6 /uL (3.70-4.87); Red Cell Distribution Width 13 % (10-15); White Blood Count 5.9 10^3/uL (3.5-10.8)
[2020-11-29 07:41] LABS: Albumin 3.5 g/dL (3.2-5.2); Albumin/Globulin Ratio 1.5 (1-3); BUN/Creatinine Ratio 18.2 (8-20); Calcium 8.7 mg/dL (8.6-10.3); EGFR African American 90.5 (>60); EGFR Non-African American 74.8 (>60); Globulin 2.4 g/dL (2-4); Potassium 3.8 mmol/L (3.5-5.0); Total Bilirubin 0.4 mg/dL (0.2-1.0); Total Protein 5.9 g/dL (6.4-8.9)
[2020-11-29] MEDS: Multivitamins/Minerals TAB PO SCH (08:37)
[2020-11-29] MEDS: Nystatin TOP POWDER 15 GM BTL TOPICAL SCH ×2 (08:41→21:38)
[2020-11-29] MEDS: CMC:Venlafaxine 25 mg TAB (NF) PO SCH (17:26)
[2020-11-29] MEDS: Venlafaxine XR 75 mg PO SCH (17:26)
[2020-11-29] MEDS: Senna TAB 8.6 mg TAB PO PRN (21:35)
[2020-11-30] MEDS: Multivitamins/Minerals TAB PO SCH (08:23)
[2020-11-30] MEDS: Nystatin TOP POWDER 15 GM BTL TOPICAL SCH ×2 (10:41→21:17)
[2020-11-30] MEDS: CMC:Venlafaxine 25 mg TAB (NF) PO SCH (17:55)
[2020-11-30] MEDS: Venlafaxine XR 75 mg PO SCH (17:55)
[2020-12-01] MEDS: Multivitamins/Minerals TAB PO SCH (09:27)
[2020-12-01] MEDS: Nystatin TOP POWDER 15 GM BTL TOPICAL SCH ×2 (10:41→21:14)
[2020-12-01] MEDS: Venlafaxine XR 75 mg PO SCH (17:31)
[2020-12-01] MEDS: CMC:Venlafaxine 25 mg TAB (NF) PO SCH (17:31)
[2020-12-02] MEDS: Multivitamins/Minerals TAB PO SCH (08:11)
[2020-12-02] MEDS: Nystatin TOP POWDER 15 GM BTL TOPICAL SCH ×2 (09:55→21:41)
[2020-12-02] MEDS: CMC:Venlafaxine 25 mg TAB (NF) PO SCH (17:48)
[2020-12-02] MEDS: Venlafaxine XR 75 mg PO SCH (17:49)
[2020-12-03 05:52] VITALS: BP 137/65
[2020-12-03] MEDS: Multivitamins/Minerals TAB PO SCH (08:52)
[2020-12-03] MEDS: Nystatin TOP POWDER 15 GM BTL TOPICAL SCH (08:54)
== END 2020-12-03 14:00 | disposition home or self-care (01) | DRG 560 ==
LOC: PMRU 13:38
PROVIDERS: ADMIT Physical Medicine & Rehabilitation; ATTEND Physical Medicine & Rehabilitation

== ENCOUNTER 2022-05-21 08:55 | Observation (INO) ==
[2022-05-21] MEDS ORDERED: Iodixanol (CONTRAST) 320 MG/ML 100 ML SDV IV ONE (09:15)
[2022-05-21 09:26] LABS: Activated Partial Thrombo Time 29.8 seconds (26.0-38.0); INR 0.93 (0.89-1.11)
[2022-05-21 09:56] LABS: ABS Monocytes 0.3 10^3/ul (0-0.8); ABS Neutrophils 7.9 10^3/ul (1.5-7.7); Eosinophil % 0.3 %; Hematocrit 39 % (35-47); Hemoglobin 13.4 g/dL (12.0-16.0); Lymphocyte % 10.9 %; Mean Corpuscular HGB Conc 34 g/dL (31-36); Mean Corpuscular Hemoglobin 31 pg (27-31); Mean Corpuscular Volume 91 fL (80-97); Mean Platelet Volume 6.6 fL (7.4-10.4); Platelet Count 298 10^3/uL (150-450); Red Blood Count 4.27 10^6 /uL (3.70-4.87); Red Cell Distribution Width 13 % (10-15); White Blood Count 9.3 10^3/uL (3.5-10.8)
[2022-05-21 09:58] LABS: Albumin 4.5 g/dL (3.2-5.2); Albumin/Globulin Ratio 1.8 (1-3); Calcium 10.2 mg/dL (8.6-10.3); Globulin 2.5 g/dL (2-4); Total Bilirubin 0.6 mg/dL (0.2-1.0); eGFR CKD-EPI 75.2 (>60)
[2022-05-21] MEDS ORDERED: Metoclopramide 5 MG/ML VIAL (10 mg) IV ONE (10:03)
[2022-05-21 10:25] LABS: Urine Appearance Clear; Urine Bilirubin Negative (Negative); Urine Blood Negative (Negative); Urine Color Straw; Urine Glucose Negative (Negative); Urine Ketones Trace (Negative); Urine Nitrite Negative (Negative); Urine Protein Negative (Negative); Urine Specific Gravity 1.016 (1.002-1.030); Urine Urobilinogen Negative (Negative)
[2022-05-21] MEDS ORDERED: levETIRAcetam 1000MG IVPREMIX 1,000 MG/100 ML BAG IVPB ONE (11:08)
[2022-05-21] MEDS ORDERED: Ondansetron 4 mg VIAL 2 MG/ML 2 ml VIAL IV PRN (13:09)
[2022-05-21] MEDS ORDERED: Iohexol 350 (CONTRAST) 500 ML MDV IV ONE (13:18)
[2022-05-21] MEDS ORDERED: Lactated Ringers 1000 ml BAG 1,000 ML IV SCH (14:00)
[2022-05-21] MEDS ORDERED: Gadoteridol (CONTRAST) 279.3 MG/ML 10 ML IV ONE (15:21)
[2022-05-21] MEDS ORDERED: Polyethylene Glycol 3350 17 GM PACKET PO PRN (15:26)
[2022-05-21] MEDS ORDERED: Magnesium Hydroxide LIQ 30 ML UDC PO PRN (15:26)
[2022-05-21] MEDS ORDERED: Senna TAB 8.6 mg TAB PO PRN (15:26)
[2022-05-21 17:05] LABS: C Reactive Protein 3.49 mg/L (<8.01)
[2022-05-21] MEDS: Enoxaparin 40 MG/0.4 ML SYR SUBCUT SCH (17:58)
[2022-05-21] MEDS: levETIRAcetam IV 750 MG in NS 0.9% 100 ml BAG 100 ML IVPB SCH (20:09)
[2022-05-21 21:08] LABS: Erythrocyte Sed Rate 10 mm/Hr (0-29)
[2022-05-22 06:25] LABS: ABS Lymphocytes 1.5 10^3/ul (1.0-4.8); ABS Monocytes 0.8 10^3/ul (0-0.8); ABS Neutrophils 6.3 10^3/ul (1.5-7.7); Hematocrit 43 % (35-47); Lymphocyte % 17.6 %; Mean Corpuscular HGB Conc 35 g/dL (31-36); Mean Corpuscular Hemoglobin 32 pg (27-31); Mean Corpuscular Volume 94 fL (80-97); Mean Platelet Volume 6.7 fL (7.4-10.4); Platelet Count 301 10^3/uL (150-450); Red Blood Count 4.63 10^6 /uL (3.70-4.87); Red Cell Distribution Width 13 % (10-15); White Blood Count 8.7 10^3/uL (3.5-10.8)
[2022-05-22 06:43] LABS: CO2 Carbon Dioxide 21 mmol/L (22-32); Calcium 9.3 mg/dL (8.6-10.3); Chloride 108 mmol/L (101-111); Sodium 141 mmol/L (135-145)
[2022-05-22 06:47] LABS: Anion Gap 12 mmol/L (2-11)
[2022-05-22 06:48] LABS: Blood Urea Nitrogen 15 mg/dL (6-24); Glucose 126 mg/dL (70-100); eGFR CKD-EPI 70.1 (>60)
[2022-05-22] MEDS: levETIRAcetam IV 750 MG in NS 0.9% 100 ml BAG 100 ML IVPB SCH (08:17)
[2022-05-22] MEDS ORDERED: CMCS: Venlafaxine 25 mg TAB (NF) PO SCH (09:00)
[2022-05-22] MEDS ORDERED: ALPRAZOLAM 1 MG PO SCH (09:00)
[2022-05-22] MEDS ORDERED: Aspirin EC 81 mg TAB.EC (enteric coated) PO SCH (09:00)
[2022-05-22] MEDS: Enoxaparin 40 MG/0.4 ML SYR SUBCUT SCH (14:58)
[2022-05-22 21:42] VITALS: BP 131/72
== END 2022-05-22 19:00 | disposition home or self-care (01) ==
LOC: ED 08:55 → EDHOLD 08:55 → SUATTDRO 13:09 → EDHOLD 18:04 → MEDTELE 19:08
PROVIDERS: ADMIT Internal Medicine; ATTEND Pediatrics